=== PATIENT | male | born 1960 | race Two or more races ===

== ENCOUNTER 2022-11-04 07:49 | Inpatient (IN) | payer MEDICAID ==
[~2022-11-04] VITALS: Ht 170.2 cm; Wt 74.5 kg
[2022-11-04 09:05] LABS: Basophils # (auto) 0 10 ^3/uL (0-0.2); Basophils % (auto) 0.2 % (0.0-2.0); Eosinophils # (auto) 0.2 10 ^3/uL (0-0.8); Eosinophils % (auto) 1.8 % (0.0-7.0); Hematocrit 48.6 % (41.0-53.0); Hemoglobin 16.3 g/dL (13.5-17.5); Lymphocytes # (auto) 3.1 10 ^3/uL (0.4-5.4); Lymphocytes % (auto) 35.2 % (10.0-50.0); Mean Corpuscular Hgb Conc. 33.5 g/dL (32.0-36.0); Mean Corpuscular Volume 92.6 fL (80.0-100.0); Monocytes # (auto) 0.8 10 ^3/uL (0-1.3); Monocytes % (auto) 9.1 % (0.0-12.0); Neutrophils # (auto) 4.7 10 ^3/uL (1.6-8.6); Neutrophils % (auto) 53.7 % (37.0-80.0); Nucleated Red Blood Cells % 0.1 %; Red Blood Cells 5.25 10^6/uL (4.5-5.90); Red Cell Distribution Width 13.9 % (11.8-14.3); White Blood Cell 8.7 10^3/uL (4.4-10.8)
[2022-11-04 09:20] LABS: Albumin 3.5 g/dL (3.4-5.0); Calcium 8.8 mg/dL (8.5-10.1); Potassium 4.1 mmol/L (3.5-5.1)
[2022-11-04 09:23] LABS: BUN/Creatinine Ratio 10.3; Bilirubin, Total 1.2 mg/dL (0.2-1.0)
[2022-11-04] MEDS ORDERED: ENOXAPARIN SOD 80 MG/0.8ML SYRINGE SC ONE (11:30)
[2022-11-04] MEDS ORDERED: MORPHINE SULFATE INJ 2 MG/ml SYRG IV PRN (14:15)
[2022-11-04] MEDS ORDERED: DOCUSATE SOD 100 MG CAP PO PRN (14:15)
[2022-11-04] MEDS ORDERED: ACETAMINOPHEN 325 MG TAB PO PRN (14:15)
[2022-11-04] MEDS ORDERED: ONDANSETRON HCL 4 MG/2 ML VIAL IV PRN (14:15)
[2022-11-04] MEDS ORDERED: NITROGLYCERIN 0.4 MG SL TAB SL PRN (14:15)
[2022-11-04 16:15] LABS: INR 3.09 (0.9-1.15); Partial Thromboplastin Time 49.3 sec (24.6-33.4)
[2022-11-04] MEDS ORDERED: ROSU1TAB13 PO (19:16)
[2022-11-04] MEDS ORDERED: GAB100C PO (19:16)
[2022-11-05 00:33] VITALS: BP 97/63
[2022-11-05 05:40] LABS: Basophils # (auto) 0 10 ^3/uL (0-0.2); Basophils % (auto) 0.4 % (0.0-2.0); Eosinophils # (auto) 0.2 10 ^3/uL (0-0.8); Eosinophils % (auto) 2.3 % (0.0-7.0); Hematocrit 45.3 % (41.0-53.0); Hemoglobin 15.1 g/dL (13.5-17.5); Lymphocytes % (auto) 38.2 % (10.0-50.0); Mean Corpuscular Hemoglobin 31.1 pg (28.0-32.0); Mean Corpuscular Hgb Conc. 33.4 g/dL (32.0-36.0); Mean Corpuscular Volume 93.2 fL (80.0-100.0); Monocytes # (auto) 0.5 10 ^3/uL (0-1.3); Neutrophils % (auto) 52.1 % (37.0-80.0); Nucleated Red Blood Cells % 0.1 %; Red Blood Cells 4.86 10^6/uL (4.5-5.90); White Blood Cell 7.7 10^3/uL (4.4-10.8)
[2022-11-05 05:45] LABS: INR 3.17 (0.9-1.15); Partial Thromboplastin Time 42.1 sec (24.6-33.4)
[2022-11-05 05:53] LABS: Albumin 3.2 g/dL (3.4-5.0); BUN/Creatinine Ratio 14.4; Calcium 8.4 mg/dL (8.5-10.1); Potassium 3.8 mmol/L (3.5-5.1)
[2022-11-05 05:56] LABS: Bilirubin, Total 0.9 mg/dL (0.2-1.0); Total Protein 6.9 g/dL (6.4-8.2)
[2022-11-05] MEDS: PANTOPRAZOLE 40 MG/10 ML VIAL INJ IV SCH ×2 (11:57→11:58)
[2022-11-05] MEDS ORDERED: OMNIPAQUE ORAL SOLN 500ml 12mg/ml PO ONE (14:04)
[2022-11-05] MEDS ORDERED: IOHEXOL 300 MG/ML 100ML BOTTLE IJ ONE (15:09)
[2022-11-05 22:00] VITALS: BP 97/63
[2022-11-05] MEDS ORDERED: ENOXAPARIN SOD 80 MG/0.8ML SYRINGE SC SCH (22:00)
[2022-11-05] MEDS: ATORVASTATIN 20 MG TAB PO SCH (22:59)
[2022-11-06] VITALS (8 sets, daily range): BP systolic 97–124; BP diastolic 63–76
[2022-11-06] MEDS ORDERED: WARF5TAB71 PO (01:25)
[2022-11-06] MEDS: MORPHINE SULFATE INJ 2 MG/ml SYRG IV PRN ×2 (04:29→13:14)
[2022-11-06 05:51] LABS: Basophils # (auto) 0.1 10 ^3/uL (0-0.2); Basophils % (auto) 0.7 % (0.0-2.0); Eosinophils # (auto) 0.3 10 ^3/uL (0-0.8); Eosinophils % (auto) 3.7 % (0.0-7.0); Hematocrit 44.1 % (41.0-53.0); Hemoglobin 14.9 g/dL (13.5-17.5); Lymphocytes # (auto) 3.9 10 ^3/uL (0.4-5.4); Mean Corpuscular Hemoglobin 31.6 pg (28.0-32.0); Mean Corpuscular Hgb Conc. 33.9 g/dL (32.0-36.0); Mean Corpuscular Volume 93.3 fL (80.0-100.0); Monocytes # (auto) 1.1 10 ^3/uL (0-1.3); Monocytes % (auto) 11.9 % (0.0-12.0); Neutrophils # (auto) 3.9 10 ^3/uL (1.6-8.6); Neutrophils % (auto) 41.7 % (37.0-80.0); Nucleated Red Blood Cells % 0.2 %; Red Blood Cells 4.73 10^6/uL (4.5-5.90); Red Cell Distribution Width 14.3 % (11.8-14.3); White Blood Cell 9.3 10^3/uL (4.4-10.8)
[2022-11-06 06:03] LABS: Albumin 3.2 g/dL (3.4-5.0); Calcium 8.5 mg/dL (8.5-10.1)
[2022-11-06 06:09] LABS: BUN/Creatinine Ratio 15.2; Total Protein 6.7 g/dL (6.4-8.2)
[2022-11-06 07:33] LABS: INR 2.28 (0.9-1.15); Partial Thromboplastin Time 38.4 sec (24.6-33.4)
[2022-11-06] MEDS: MULTIPLE VITAMIN TAB PO SCH (11:00)
[2022-11-06] MEDS: PANTOPRAZOLE 40 MG/10 ML VIAL INJ IV SCH (11:00)
[2022-11-06] MEDS: THIAMINE HCL 100 MG TAB PO SCH (11:00)
[2022-11-06] MEDS ORDERED: WARFARIN SODIUM 5 MG TAB PO ONE (17:00)
[2022-11-06] MEDS: ATORVASTATIN 20 MG TAB PO SCH (22:10)
[2022-11-06] MEDS: HYDROcodone-ACET 5/325MG TAB PO PRN (22:11)
[2022-11-06 22:36] LABS: Urine Bacteria NONE SEEN /hpf (None Seen); Urine Blood Negative /uL (Negative); Urine Specific Gravity 1.023 (1.001-1.035); Urine WBC 1 /hpf (0 - 3)
[2022-11-06 22:50] LABS: Alcohol, Urine < 3.0 mg/dL (0-10); Amphetamine Screen, Urine NEGATIVE (NEGATIVE); Barbiturate Scree,Urine NEGATIVE (NEGATIVE); Benzodiazephine Screen, Urine NEGATIVE (NEGATIVE); Cannabinoid Screen, Urine NEGATIVE (NEGATIVE); Cocaine Screen, Urine NEGATIVE (NEGATIVE); Opiate Scree,Urine NEGATIVE (NEGATIVE); Phencyclidine Screen, Urine NEGATIVE (NEGATIVE)
[2022-11-07] MEDS: HYDROcodone-ACET 5/325MG TAB PO PRN (04:44)
[2022-11-07 05:00] VITALS: BP 101/70
[2022-11-07 05:54] LABS: INR 1.7 (0.9-1.15); Partial Thromboplastin Time 32.2 sec (24.6-33.4)
[2022-11-07 08:00] VITALS: BP 113/70
[2022-11-07 09:00] VITALS: BP 113/70
[2022-11-07] MEDS: MULTIPLE VITAMIN TAB PO SCH (09:27)
[2022-11-07] MEDS: PANTOPRAZOLE 40 MG/10 ML VIAL INJ IV SCH (09:27)
[2022-11-07] MEDS: THIAMINE HCL 100 MG TAB PO SCH (09:28)
[2022-11-07 13:00] VITALS: BP 102/61
[2022-11-07] MEDS ORDERED: WARFARIN SODIUM 2 MG TAB PO ONE (17:00)
== END 2022-11-07 18:19 | disposition home or self-care (01) | DRG 197 ==
LOC: ER 08:13 → TELE 15:02 → OVERFLOW 15:09 → CENTRAL 11-05 21:23
PROVIDERS: ADMIT Nurse Practitioner Family; ATTEND Nurse Practitioner Acute Care
DX: I82.411 Acute embolism and thrombosis of right femoral vein (principal); D68.69 Other thrombophilia; E78.5 Hyperlipidemia, unspecified; I73.9 Peripheral vascular disease, unspecified; I82.501 Chronic embolism and thrombosis of unspecified deep veins of right lower extremity; H54.8 Legal blindness, as defined in USA; I10 Essential (primary) hypertension; J44.9 Chronic obstructive pulmonary disease, unspecified; Z20.822 Contact with and (suspected) exposure to COVID-19; Z79.01 Long term (current) use of anticoagulants; Z86.73 Personal history of transient ischemic attack (TIA), and cerebral infarction without residual deficits; Z72.0 Tobacco use
CPT/HCPCS: 36415; 74177; 80053; 80307; 81001; 84484; 85025; 85610; 85730; 87426; 93926; 93970; 96372; C9113; G0378

== ENCOUNTER 2025-10-12 09:23 | Inpatient (IN) | payer MEDICARE, MEDICAID ==
[~2025-10-12] VITALS: Ht 170.2 cm; Wt 83.0 kg
[~2025-10-12 09:23] MED LIST: GAB100C PO; ROSU10TA64 PO; WARF-66 PO
--- NOTE | 2025-10-12 10:19 | ED.PDOC ---
HPI Comments This is a 64 year old male [place] presenting to the ED with chief complaint of chest pain. Patient reports that he has been experiencing right sided chest pain for the past 4-5 days with associated SOB and pain with inspiration. Patient relays that he has used an inhaler he had at home with no relief in his symptoms noted. EMS states patient needed to be placed on 6L of O2 at this time. Patient denies any N/V/D, dizziness, headache, abdominal pain, cough, hemoptysis, or fev er. Chief Complaint: Shortness of Breath Time Seen by MD: 10:16 Reviewed Notes: Nurses Notes, Journeyman Plumber Notes, Medications, Allergies Allergies: Coded Allergies: NO KNOWN ALLERGIES (Unverified , 11/04/22) Home Meds Reported Medications Warfarin Sodium (Warfarin Sodium) 5 Mg Tab, 5 MG PO DAILY, TAB 11/06/22 Rosuvastatin Calcium (Rosuvastatin Calcium) 10 Mg Tab, 10 MG PO DAILY 11/04/22 Gabapentin (Gabapentin) 100 Mg Cap, 100 MG PO DAILY 11/04/22 Information Source: Patient, Emergency Med Personnel Mode of Arrival: EMS Severity: Moderate Timing: Hours Duration: Since onset Prehospital treatment: None Location: Chest (R) Radiation: No Radiation Quality: Sharp Onset: At Rest Cardiac Risk Factors: None PE Risk Factors: None History of: Similar pain in past Associated Signs and Symptoms: SOB Past Medical History PAST MEDICAL HISTORY: High Lipids, HTN, PE Past Medical History (Other): DVT Surgical History: Denies all surgeries Family History Family History: Reviewed,noncontributory to illness Social History Smoker: Non-Smoker Alcohol: Denies ETOH Use Drugs: Denies Drug Use Lives In: Home Constitutional: denies: chills, diaphoresis, fatigue, fever, malaise, sweats, weakness, others EENTM: denies: blurred vision, double vision, ear bleeding, ear discharge, ear drainage, ear pain, ear ringing, eye pain, eye redness, hearing loss, mouth pain, mouth swelling, nasal discharge, nose bleeding, nose congestion, nose pain, photophobia, tearing, throat pain, throat swelling, voice changes, others Respiratory: reports: shortness of breath; denies: cough, hemoptysis, orthopnea, SOB at rest, SOB with excertion, stridor, wheezing, others Cardiovascular: reports: chest pain; denies: dizzy spells, diaphoresis, Dyspnea on exertion, edema, irregular heart beat, left arm pain, lightheadedness, palpitations, PND, syncope, others Gastrointestinal: denies: abdomen distended, abdominal pain, blood streaked bowels, constipated, diarrhea, dysphagia, difficulty swallowing, hematemesis, melena, nausea, poor appetite, poor fluid intake, rectal bleeding, rectal pain, vomiting, others Genitourinary: denies: burning, dysuria, flank pain, frequency, hematuria, incontinence, penile discharge, penile sore, pain, testicle pain, testicle swelling, urgency, others Neurological: denies: dizziness, fainting, headache, left sided numbness, left sided weakness, numbness, paresthesia, pre-existing deficit, right sided numbness, right sided weakness, seizure, speech problems, tingling, tremors, weakness, others Musculoskeletal: denies: back pain, gout, joint pain, joint swelling, muscle pain, muscle stiffness, neck pain, others Integumetry: denies: bruises, change in color, change in hair/nails, dryness, laceration, lesions, lumps, rash, wounds, others Allergic/Immunocompromised: denies: Difficulty Healing, Frequent Infections, Hives, Itching, others Hematologic/Lymphatic: denies: anemia, blood clots, easy bleeding, easy bruising, swollen glands, others Endocrine: denies: excessive hunger, excessive sweating, excessive thirst, excessive urination, flushing, intolerance to cold, intolerance to heat, unexpl ained weight gain, unexplained weight loss, others Psychiatric: denies: anxiety, bipolar disorder, depression, hopeless, panic disorder, schizophrenia, sleepless, suicidal, others All Other Systems: Reviewed and Negative Physical Exam General Appearance: Moderate Distress, Normal HEENT: Normal ENT Inspection, PERRL/EOMI, Pharynx Normal, TMs Normal, Other (Blind right eye) Neck: Full Range of Motion, Non-Tender, Normal, Normal Inspection Respiratory: Chest Non-Tender, Lungs Clear, No Accessory Muscle Use, No Respiratory Distress, Normal Breath Sounds, Other (Pain upon inspiration mostly lateral and) Cardiovascular: No Edema, No JVD, No Murmur, No Gallop, Normal Peripheral Pulses, Regular Rate/Rhythm Breast Exam: Deferred Gastrointestinal: No Organomegaly, Non Tender, No Pulsatile Mass, Normal Bowel Sounds, Soft Genitalia: Deferred Pelvic: Deferred Rectal: Deferred Extremities: No calf tenderness, Normal capillary refill, Normal inspection, Normal range of motion, Non-tender, No pedal edema Musculoskeletal : Apperance: Normal Neurologic: Alert, italian lecturer II-XII nml as Tested, No Motor Deficits, Normal Affect, Normal Mood, No Sensory Deficits Cerebellar Function: Normal Reflexes: Normal Skin: Dry, Normal Color, Warm Peripheral Pulses: 1+ carotid (R), 1+ carotid (L) Lymphatic: No Adenopathy EKG EKG : Pulse Rate (adult): 91 [place]: Normal Cardiac Rhythm: NSR Was a procedure done? Was a procedure done?: No CP Differential Dx Differential Diagnosis: Angina, Anxiety / Panic Attack, Electrolyte Disorder, CA, Pulmonary Embolus Differential Diagnosis: CHF Differential Diagnosis: Angina, Chest Wall Pain, Costochondritis, Esophageal reflux/spasm, Myocardial Infarction, Pneumonia, Pulmonary Embolus X-Ray, Labs, Meds, VS Vital Signs Date Time Temp Pulse Resp B/P (MAP) Pulse Ox O2 Delivery O2 Flow Rate FiO2 10/12/25 14:35 99.1 85 18 127/72 (90) 92 99.1 10/12/25 13:00 90 25 144/88 (106) 94 10/12/25 12:00 88 25 93 Nasal Cannula* 6 44 10/12/25 11:00 98.8 82 24 129/83 (98) 94 98.8 10/12/25 09:51 98.0 101 22 146/92 94 98.0 10/12/25 09:26 91 Lab Test 10/12/25 13:37 10/12/25 11:30 Range/Units Lactic Acid Level 1.5 0.4-2.0 mmol/L White Blood Count 12.6 H 4.4-10.8 10^3/uL Red Blood Count 4.90 4.5-5.90 10^6/uL Hemoglobin 15.6 13.5-17.5 g/dL Hematocrit 45.8 41.0-53.0 % Mean Corpuscular Volume 93.3 80.0-100.0 fL Mean Corpuscular Hemoglobin 31.8 28.0-32.0 pg Mean Corpuscular Hemoglobin Concent 34.1 32.0-36.0 g/dL Red Cell Distribution Width 13.5 11.8-14.3 % Platelet Count 194 140-450 10^3/uL Mean Platelet Volume 7.6 6.9-10.8 fL Neutrophils (%) (Auto) 67.1 37.0-80.0 % Lymphocytes (%) (Auto) 20.6 10.0-50.0 % Monocytes (%) (Auto) 11.3 0.0-12.0 % Eosinophils (%) (Auto) 0.2 0.0-7.0 % Basophils (%) (Auto) 0.8 0.0-2.0 % Neutrophils # (Auto) 8.5 1.6-8.6 10 ^3/uL Lymphocytes # (Auto) 2.6 0.4-5.4 10 ^3/uL Monocytes # (Auto) 1.4 H 0-1.3 10 ^3/uL Eosinophils # (Auto) 0 0-0.8 10 ^3/uL Basophils # (Auto) 0.1 0-0.2 10 ^3/uL Nucleated Red Blood Cells 0.0 % Prothrombin Time 11.1 9.3-11.8 sec Prothrombin Time INR 1.05 0.9-1.15 Activated Partial Thromboplast Time 26.2 24.5-34.5 SEC D-Dimer, Quantitative 6.12 H 0.0-0.49 mg/L FEU Sodium Level 138 136-145 mmol/L Potassium Level 4.4 3.5-5.1 mmol/L Chloride Level 102 98-107 mmol/L Carbon Dioxide Level 27 20-31 mmol/L Anion Gap 9 5-15 Blood Urea Nitrogen 10 9-23 mg/dL Creatinine 0.98 0.700-1.30 mg/dL Glomerular Filtration Rate Calc 86 >90 mL/min BUN/Creatinine Ratio 10.2 10.0-20.0 Serum Glucose 96 74-106 mg/dL Calcium Level 8.9 8.7-10.4 mg/dL Magnesium Level 2.4 1.6-2.6 mg/dL Total Bilirubin 1.3 H 0.2-1.0 mg/dL Aspartate Amino Transferase (AST) 18 13-40 U/L Alanine Aminotransferase (ALT) 18 7-40 U/L Alkaline Phosphatase 77 46-116 U/L Troponin I High Sensitivity < 3 L </=54 ng/L Total Protein 7.7 5.7-8.2 g/dL Albumin 4.2 3.2-4.8 g/dL Current Medications Medications (Trade) Dose Ordered Sig/Chandler Route Start Time Stop Time Status Last Admin Sodium Chloride 1,000 ml @ 150 mls/hr Q6H40M ONCE IV 10/12/25 11:30 10/12/25 18:09 10/12/25 12:13 [place] [id number] Ph: [phone] DIAGNOSTIC IMAGING Diagnostic Imaging Report : [id number] Signed PATIENT: ISAURO JACK ACCT: [id number] UNIT: [id number] : 1960 LOC: ER ROOM / BED: / AGE / SEX: 64 / M ADM STATUS: REG ER SERVICE [id number] ORDERING PHYSICIAN: LAUREN JOSHI MD PROCEDURE(s): CTACH - CT ANGIO CHEST CONTRAST REASON: Pulmonary embolism ORDER NUMBER(s): [id number], ACCESSION NUMBER(s): [id number] CLINICAL INFORMATION: Pulmonary embolism. Indication for same-day chest radiographs was pleuritic chest pain. TECHNIQUE: Axial CTA images of the chest were obtained after the uneventful administration of 100 mL of Omnipaque 350 IV contrast. Coronal and sagittal reformatted images and MIP images were obtained, reviewed, and stored. One or more of the following dose reduction techniques were used: Automated exposure control. Adjustment of mA and/or kV according to patient size. CTDIvol = 19.94 mGy DLP = 590.06 mGy-cm COMPARISON: XY CHEST TWO VIEWS ROUTINE on DOS: 10/12/25, XR CHEST 1 VIEW on DOS: 09/18/23 FINDINGS: Pulmonary arteries: There are bilateral pulmonary emboli, including in the distal aspects of the right and left main pulmonary arteries and extending into the proximal lobar and segmental branches bilaterally. Aorta: No aneurysm or dissection. Cardiac: Heart size is within normal limits. There is straightening of the interventricular septum with the right ventricle equal in size compared to the left ventricle, may suggest a degree of right heart strain in the appropriate clinical setting. Moderate coronary artery calcification. Small pericardial effusion. Mediastinum/riky: No mass or adenopathy. Lungs: Small right pleural effusion there are areas of atelectasis and consolidation in the lower lobes bilaterally, left greater than right, right middle lobe, and lingula. Chest wall: No mass or other abnormality. Upper abdomen: Moderate atrophy of the pancreas. Bones: No acute fracture or suspicious intraosseous lesions. IMPRESSION: 1. Acute bilateral pulmonary emboli, including in the distal aspects of the right and left main pulmonary arteries and extending into lobar and segmental branches. 2. Findings described above consistent with a degree of right heart strain in the appropriate clinical setting. 3. Atelectasis and consolidations are seen in the lower lobes bilaterally, right greater than left, and in the right middle lobe and lingula. 4. Additional findings as described above. Critical findings Critical Result: Acute pulmonary emboli. Possible right heart strain. Findings discussed with LAUREN SHAW at 10/12/2025 03:40 PM JUNIOR SALES REPRESENTATIVE, and acknowledged receipt and understanding of the findings. .. ATED BY: JOSE J PENALOZA DO DICTATED DATE/TIME: 10/12/251343 SIGNED BY: JOSE J PENALOZA DO SIGNED DATE/TIME: 10/12/251343 CC: X-Ray, Labs, Meds, VS Comment Course in emergency department patient came in complaining of shortness of breath and chest pain Chest x-ray shows pulmonary vascular congestion cardiomegaly and opacities EKG shows normal sinus rhythm at 91 CBC [id number] with 67% neutrophils normal H&H INR 1.05 D-dimer six 0.12 CMP negative Magnesium 2.4 Troponin less than three Patient will be admitted to ICU for further care Images Reviewed?: Images reviewed and evaluated by me Time of 1ST Reevaluation: 11:15 Reevaluation 1ST: Unchanged Time of 2ND Reevaluation: 16:08 Reevaluation 2ND: Unchanged Patient Education/Counseling: Diagnosis, Treatment, Prognosis Family Education/Counseling: Diagnosis, Treatment, Need For Follow Up, No Family Present SEPSIS Sepsis Screen Date sepsis recognized/suspect: Oct 12, 2025 Time Sepsis recognized/suspect: 934 Recent Procedure: No On Antibiotic Therapy: No Respiratory Rate >20: No Heart Rate >90: No Temp<36 C (96.8 F) or >38.3 C: No SBP <90 or MAP <65 mmHG: No New Acute Mental Status Change: No Is the patient on CPAP, BIPAP,: No Physician Orders Chest Two Views Routine (10/12/25 11:22) Heplock Iv (10/12/25 11:22) Plastic Production Machine Setter (10/12/25 11:22) Blood Pressure (10/12/25 11:22) Electrocardigram (10/12/25 11:22) Sodium Chloride 0.9% (10/12/25 11:30) Ct Angio Chest Contrast (10/12/25 12:35) Blood Culture (10/12/25 13:24) Platelet Monitoring (10/12/25 14:29) Vte Protocol Initiated (10/12/25 14:29) Heparin Per Standardized Proce (10/12/25 14:29) Discontinue All Im Injections (10/12/25 14:29) Heparin Drip/D5w 100units/Ml (10/12/25 14:30) Vital Signs Date Time Temp Pulse Resp B/P (MAP) Pulse Ox O2 Delivery O2 Flow Rate FiO2 10/12/25 14:35 99.1 85 18 127/72 (90) 92 99.1 10/12/25 13:00 90 25 144/88 (106) 94 10/12/25 12:00 88 25 93 Nasal Cannula* 6 44 10/12/25 11:00 98.8 82 24 129/83 (98) 94 98.8 10/12/25 09:51 98.0 101 22 146/92 94 98.0 10/12/25 09:26 91 Laboratory Tests Test 10/12/25 11:30 10/12/25 13:37 White Blood Count 12.6 10^3/uL (4.4-10.8) H Lactic Acid Level 1.5 mmol/L (0.4-2.0) Medications Medications Dose Ordered Sig/Chandler Route Start Time Stop Time Status Last Admin Dose Admin Sodium Chloride 1,000 ml @ 150 mls/hr Q6H40M ONCE IV 10/12/25 11:30 10/12/25 18:09 10/12/25 12:13 Departure 1 Departure Time of Disposition: 16:10 Impression: Primary Impression: Shortness of breath Additional Impressions: Pleuritic chest pain Bilateral pulmonary embolism Disposition: 09 ADMITTED INPATIENT Admit to: ICU Condition: Critical Critical Care Note Critical Care Time?: Yes (30 min-critical care time only) Stability Stability form required: Yes Heart Score Heart Score: Heart Score Response (Comments) Value History Moderate Suspicious 1 EKG Normal 0 Age >65 2 Risk Factors >3 or Hx ASHD 2 Troponin Normal limit 0 Total 5 I personally scribed for LAUREN JOSHI MD ([email or web address]) on 10/12/25 at 10:19. Electronically submitted by Rogerio Whitfield ([email or web address]). I personally scribed for LAUREN JOSHI MD ([email or web address]) on 10/12/25 at 14:20. Electronically submitted by Rogerio Whitfield ([email or web address]). LAUREN JOSHI MD Oct 12, 2025 10:19
[2025-10-12 11:47] LABS: Hematocrit 45.8 % (41.0-53.0); Hemoglobin 15.6 g/dL (13.5-17.5); Mean Corpuscular Hemoglobin 31.8 pg (28.0-32.0); Mean Corpuscular Volume 93.3 fL (80.0-100.0); Nucleated Red Blood Cells % 0.0 %
[2025-10-12 12:00] VITALS: PULSE 88; RESP 25; O2SAT 93
[2025-10-12 12:09] LABS: INR 1.05 (0.9-1.15); Partial Thromboplastin Time 26.2 SEC (24.5-34.5); Prothrombin Time 11.1 sec (9.3-11.8)
--- NOTE | 2025-10-12 12:09 | DVH ---
CHEST RADIOGRAPH Indication: Pleuritic chest pain Technique: XY CHEST TWO VIEWS ROUTINE COMPARISON: None FINDINGS: Low lung volumes. The cardiac silhouette is enlarged. The lungs demonstrate bilateral patchy airspace opacities. The pulmonary vasculature is prominent. Small bilateral pleural effusions. Aortic atherosclerotic disease. There is no pneumothorax. IMPRESSION: As above
[2025-10-12 12:11] LABS: Alanine Aminotransferase 18 U/L (7-40); Albumin 4.2 g/dL (3.2-4.8); Alkaline Phosphatase 77 U/L (46-116); Anion Gap 9 (5-15); BUN/Creatinine Ratio 10.2 (10.0-20.0); Blood Urea Nitrogen 10 mg/dL (9-23); Calcium 8.9 mg/dL (8.7-10.4); Carbon Dioxide 27 mmol/L (20-31); Chloride 102 mmol/L (98-107); Glucose 96 mg/dL (74-106); Magnesium 2.4 mg/dL (1.6-2.6); Potassium 4.4 mmol/L (3.5-5.1); Sodium 138 mmol/L (136-145); Total Protein 7.7 g/dL (5.7-8.2)
[2025-10-12 12:12] LABS: Bilirubin, Total 1.3 mg/dL (0.2-1.0)
[2025-10-12] MEDS: SODIUM CHLORIDE 0.9% 1,000 ML IV ONE (12:13)
--- NOTE | 2025-10-12 13:47 | DVH ---
CLINICAL INFORMATION: Pulmonary embolism. Indication for same-day chest radiographs was pleuritic chest pain. TECHNIQUE: Axial CTA images of the chest were obtained after the uneventful administration of 100 mL of Omnipaque 350 IV contrast. Coronal and sagittal reformatted images and MIP images were obtained, reviewed, and stored. One or more of the following dose reduction techniques were used: Automated exposure control. Adjustment of mA and/or kV according to patient size. CTDIvol = 19.94 mGy DLP = 590.06 mGy-cm COMPARISON: XY CHEST TWO VIEWS ROUTINE on DOS: 10/12/25, XR CHEST 1 VIEW on DOS: 09/18/23 FINDINGS: Pulmonary arteries: There are bilateral pulmonary emboli, including in the distal aspects of the right and left main pulmonary arteries and extending into the proximal lobar and segmental branches bilaterally. Aorta: No aneurysm or dissection. Cardiac: Heart size is within normal limits. There is straightening of the interventricular septum with the right ventricle equal in size compared to the left ventricle, may suggest a degree of right heart strain in the appropriate clinical setting. Moderate coronary artery calcification. Small pericardial effusion. Mediastinum/riky: No mass or adenopathy. Lungs: Small right pleural effusion there are areas of atelectasis and consolidation in the lower lobes bilaterally, left greater than right, right middle lobe, and lingula. Chest wall: No mass or other abnormality. Upper abdomen: Moderate atrophy of the pancreas. Bones: No acute fracture or suspicious intraosseous lesions. IMPRESSION: 1. Acute bilateral pulmonary emboli, including in the distal aspects of the right and left main pulmonary arteries and extending into lobar and segmental branches. 2. Findings described above consistent with a degree of right heart strain in the appropriate clinical setting. 3. Atelectasis and consolidations are seen in the lower lobes bilaterally, right greater than left, and in the right middle lobe and lingula. 4. Additional findings as described above. Critical findings Critical Result: Acute pulmonary emboli. Possible right heart strain. Findings discussed with LAUREN SHAW at 10/12/2025 03:40 PM DIRECTOR OF REIMBURSEMENT, and acknowledged receipt and understanding of the findings. ..
[2025-10-12] MEDS ORDERED: HEPARIN DRIP/D5W 100UNITS/ML 250 ML IV SCH (14:30)
[2025-10-12] MEDS: HEPARIN SODIUM (PORCINE) 5000 UNITS/ML 1ML VIAL IV ONE (16:17)
--- NOTE | 2025-10-12 16:22 | CONS ---
Pharmacy Clinical Information: Heparin Protocol for PE aPTT 26.2 on 10/12/25 at 11:30 Then Heparin drip at 1500 units/ml or 15 ml/hr at 1630 on 10/12/25 next aPTT reading at 22:30 on 10/12/25 Confirmed and re-back with EDISON Santana Per RX protocol TEMI LARSON PHARMACIST Oct 12, 2025 16:22
[2025-10-12] MEDS: HEPARIN DRIP/D5W 100UNITS/ML 250 ML IV SCH ×2 (17:00→21:00)
[2025-10-12] MEDS ORDERED: MORPHINE SULFATE INJ 2 MG/ml SYRG IV PRN (18:15)
[2025-10-12] MEDS: LACTATED RINGER'S 1,000 ML IV ONE (18:15)
[2025-10-12] MEDS ORDERED: ACETAMINOPHEN 325 MG TAB PO PRN (18:15)
[2025-10-12] MEDS ORDERED: ONDANSETRON HCL 4 MG/2 ML VIAL IV PRN (18:15)
[2025-10-12] MEDS: AZITHROMYCIN 500MG/250ML 250 ML IV SCH (18:15)
[2025-10-12] MEDS ORDERED: NITROGLYCERIN 0.4 MG SL TAB SL PRN (18:15)
[2025-10-12] MEDS: PANTOPRAZOLE 40 MG/10 ML VIAL INJ IV SCH (18:15)
[2025-10-12] MEDS ORDERED: DOCUSATE SOD 100 MG CAP PO PRN (18:15)
[2025-10-12] MEDS ORDERED: TEMAZEPAM 15 MG CAP PO PRN (18:15)
--- NOTE | 2025-10-12 18:56 | DVH ---
Clinical History: rule out DVT Comparison: CV VENOUS DOPPLER LOW EXT RT on DOS: 09/17/24, RLEAD on DOS: 11/04/22, BI LOWER DVT on DOS: 11/04/22 Technique: Duplex Doppler evaluation of the deep venous system of the right lower extremity from the common femoral vein to the popliteal vein including color Doppler and spectral/pulsed waveform analysis was performed. Findings: The common femoral vein demonstrates appropriate compressibility and waveform variability. There is compressibility/patency of the great saphenous vein at the proximal thigh. The femoral vein demonstrates appropriate compressibility and waveform variability. The deep femoral vein demonstrates appropriate compressibility and waveform variability. The popliteal vein demonstrates appropriate compressibility and waveform variability. There is normal compressibility at the tibioperoneal trunk. Impression: 1. No RIGHT deep venous thrombosis. 2. If clinical concern/symptoms persist or worsen, short-interval follow-up study is suggested.
[2025-10-12 19:32] VITALS: PULSE 94; RESP 19; O2SAT 94
[2025-10-12 20:08] LABS: INR 1.13 (0.9-1.15); Prothrombin Time 11.8 sec (9.3-11.8)
[2025-10-12 20:44] LABS: Partial Thromboplastin Time 82.1 SEC (24.5-34.5)
--- NOTE | 2025-10-12 22:51 | DVHHPRES ---
History of Present Illness Resident Creating Document: TORRI CARMEN RESIDENT History of Present Illness Mr. Mckay, a 64 year old male with PmHx of Dyslipidemia, recurrent DVT, pulmonary embolism, hypertension, copd and legal blindness presenting to the ED with chief complaint of sudden onset sharp, right sided chest pain at rest. aggravated by deep breathing, associated with gradually progressive shortness of breath even at rest for past 4-5 days. Patient reached out to Dr. Arevalo's office where he was found to be in acute hypoxic respiratory failure and was BIBA to [facility] ER for further evaluation. Patient relays that he has used an inhaler he had at home with no relief in his symptoms noted. Patient denies any N/V/D, dizziness, headache, sick contact, immobilization abdominal pain, cough, hemoptysis, or fever. Prior hospitalization was due to thromboembolism as well and the patient was previously on warfarin 5 mg daily. Patient is off of warfarin and all oral medications for past few months. Lives by himself in his house, ADL with a cane, Daughter Millie who lives at [place], [place] occasionally comes and helps with doctors appointments and care. 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 Social History: Brief prior history fo smoking, denies alcohol, recreational drugs, lives by himself at home at [place], [place]. Review of Systems Constitutional: Yes: Chills, Weakness, Malaise; No: Fever, Sweats, Other Eyes: Other (baseline b/l blindness. ); No: Pain, Vision change, Conjunctivae inflammation, Eyelid inflammation, Redness ENT: No: Ear pain, Ear discharge, Nose pain, Nose discharge, Nose congestion, Mouth pain, Mouth swelling, Throat pain, Throat swelling, Other Respiratory: Cough, Shortness of breath, SOB with excertion, Pleuritic Pain; No: Dry, Wheezing, Hemoptysis, Sputum, Wheezing, Other Cardiovascular: Chest Pain; No: Palpitations, Orthopnea, Paroxysmal Noc. Dyspnea, Edema, Lt Headedness, Other Gastrointestinal: No: Nausea, Vomiting, Abdominal Pain, Diarrhea, Constipation, Melena, Hematochezia, Other Genitourinary: No Dysuria, No Frequency, No Incontinence, No Hematuria, No Retention, No Other Musculoskeletal: No: other, neck pain, shoulder pain, arm pain, back pain, hand pain, leg pain, foot pain Skin: No: Rash, Lesions, Jaundice, Bruising, Other Neurological: No: Weakness, Numbness, Incoordination, Change in speech, Conf usion, Seizures, Other Allergies: Coded Allergies: NO KNOWN ALLERGIES (Unverified , 11/04/22) Medications Current Medications Medications Dose Ordered Sig/Chandler Route Start Time Stop Time Status Last Admin Dose Admin Heparin Sodium/ Dextrose 250 ml @ 14.85 mls/ hr [id number] IV 10/12/25 14:30 UNV Temazepam 15 mg QHSP PRN PO 10/12/25 18:15 Ondansetron HCl 4 mg Q4HP PRN IV 10/12/25 18:15 Docusate Sodium 100 mg BIDPRN PRN PO 10/12/25 18:15 Acetaminophen 650 mg Q6HP PRN PO 10/12/25 18:15 Morphine Sulfate 2 mg Q4HPRN PRN IV 10/12/25 18:15 Nitroglycerin 0.4 mg Q5MINP PRN SL 10/12/25 18:15 Morphine Sulfate 2 mg Q30M PRN IV 10/12/25 18:15 Pantoprazole Sodium 40 mg DAILY IV 10/12/25 18:15 10/29/25 11:59 10/12/25 18:15 40 MG Ceftriaxone Sodium 50 ml @ 100 mls/hr DAILY IV 10/12/25 18:15 10/18/25 23:59 10/12/25 18:15 100 MLS/HR Azithromycin 250 ml @ 125 mls/hr DAILY IV 10/12/25 18:15 10/18/25 23:59 Heparin Sodium/ Dextrose 250 ml @ 13 mls/hr [id number] IV 10/12/25 21:15 10/12/25 21:00 13 MLS/HR Exam Vital Signs Vital Signs Date Time Temp Pulse Resp B/P (MAP) Pulse Ox O2 Delivery O2 Flow Rate FiO2 10/12/25 21:00 80 24 142/80 (100) 98 10/12/25 19:32 Nasal Cannula* 2 28 10/12/25 19:32 98.4 98.4 General Appearance: Alert, Oriented X3, mild distress HEENT: Atraumatic, PERRLA, EOMI, Other (dry mucosa, right eye enucleated in 1970s, left eye clinically blind. ) Respiratory: Clear to auscultation, Normal air movement, Other (basal rales and wheezing. ) Cardiovascular: Regular rate, Normal S1, Normal S2, No murmurs, Gallops Abdominal: Normal bowel sounds, Soft, No tenderness, No hepatospenomegaly, No masses Extremities: No clubbing, No cyanosis, No edema, Normal pulses, No tenderness/swelling, Other Skin: No rashes, No breakdown, No significant lesion Neuro: Normal gait, Normal speech, Strength at 5/5 X4 ext, Normal tone, Sensation intact, Other Labs/Xrays Labs Test 10/12/25 22:19 10/12/25 22:18 10/12/25 19:09 10/12/25 13:37 Range/Units Prothrombin Time 11.8 9.3-11.8 sec Prothrombin Time INR 1.13 0.9-1.15 Activated Partial Thromboplast Time 82.1 *H 24.5-34.5 SEC Troponin I High Sensitivity < 3 L </=54 ng/L Lactic Acid Level 1.5 0.4-2.0 mmol/L Test 10/12/25 11:30 Range/Units White Blood Count 12.6 H 4.4-10.8 10^3/uL Red Blood Count 4.90 4.5-5.90 10^6/uL Hemoglobin 15.6 13.5-17.5 g/dL Hematocrit 45.8 41.0-53.0 % Mean Corpuscular Volume 93.3 80.0-100.0 fL Mean Corpuscular Hemoglobin 31.8 28.0-32.0 pg Mean Corpuscular Hemoglobin Concent 34.1 32.0-36.0 g/dL Red Cell Distribution Width 13.5 11.8-14.3 % Platelet Count 194 140-450 10^3/uL Mean Platelet Volume 7.6 6.9-10.8 fL Neutrophils (%) (Auto) 67.1 37.0-80.0 % Lymphocytes (%) (Auto) 20.6 10.0-50.0 % Monocytes (%) (Auto) 11.3 0.0-12.0 % Eosinophils (%) (Auto) 0.2 0.0-7.0 % Basophils (%) (Auto) 0.8 0.0-2.0 % Neutrophils # (Auto) 8.5 1.6-8.6 10 ^3/uL Lymphocytes # (Auto) 2.6 0.4-5.4 10 ^3/uL Monocytes # (Auto) 1.4 H 0-1.3 10 ^3/uL Eosinophils # (Auto) 0 0-0.8 10 ^3/uL Basophils # (Auto) 0.1 0-0.2 10 ^3/uL Nucleated Red Blood Cells 0.0 % D-Dimer, Quantitative 6.12 H 0.0-0.49 mg/L FEU Sodium Level 138 136-145 mmol/L Potassium Level 4.4 3.5-5.1 mmol/L Chloride Level 102 98-107 mmol/L Carbon Dioxide Level 27 20-31 mmol/L Anion Gap 9 5-15 Blood Urea Nitrogen 10 9-23 mg/dL Creatinine 0.98 0.700-1.30 mg/dL Glomerular Filtration Rate Calc 86 >90 mL/min BUN/Creatinine Ratio 10.2 10.0-20.0 Serum Glucose 96 74-106 mg/dL Calcium Level 8.9 8.7-10.4 mg/dL Magnesium Level 2.4 1.6-2.6 mg/dL Total Bilirubin 1.3 H 0.2-1.0 mg/dL Aspartate Amino Transferase (AST) 18 13-40 U/L Alanine Aminotransferase (ALT) 18 7-40 U/L Alkaline Phosphatase 77 46-116 U/L B-Type Natriuretic Peptide 21.43 0-100 pg/mL Total Protein 7.7 5.7-8.2 g/dL Albumin 4.2 3.2-4.8 g/dL SEPSIS Sepsis Screen Date sepsis recognized/suspect: Oct 12, 2025 Time Sepsis recognized/suspect: 2028 Recent Procedure: No On Antibiotic Therapy: Yes Respiratory Rate >20: No Heart Rate >90: Yes Temp<36 C (96.8 F) or >38.3 C: No SBP <90 or MAP <65 mmHG: No New Acute Mental Status Change: No Is the patient on CPAP, BIPAP,: No Physician Orders Heparin Per Pharmacy Protocol (10/12/25 23:00) Admit (10/12/25 18:11) Allergies (10/12/25 18:11) Code Status (10/12/25 18:11) Oxygen Per Hour (10/12/25 18:11) Temazepam (Restoril) (10/12/25 18:15) Ondansetron Hcl (Zofran) (10/12/25 18:15) Docusate Sodium Capsule (Colace Capsule) (10/12/25 18:15) Fall Risk Precautions In Place QSHIFT (10/12/25 18:11) Complete Blood Count (10/13/25 04:00) Comprehensive Metabolic Panel (10/13/25 04:00) Npo (Nothing By Mouth) Diet (10/12/25 Dinner) Pt Request For Service (10/12/25 18:11) Echo 2d Mode Cardiac Dop (10/12/25 18:11) Condition: Critical (10/12/25 18:11) Acetaminophen Tablet (Tylenol Tablet) (10/12/25 18:15) Bedrest With Bathroom Privileg (10/12/25 18:11) Bedside Commode (10/12/25 18:11) Maintain Bed Rest (10/12/25 18:11) Nitroglycerin Sublingual (Ntrostat Subli (10/12/25 18:15) Morphine Sulfate Injection (10/12/25 18:15) Oxygen By Nasal Cannula (10/12/25 18:11) Stat Ekg For Chest Pain (10/12/25 18:11) Notify Md Of Changes From Base (10/12/25 18:11) Child Care Nurse For 24 Hours (10/12/25 18:11) Emergency Dysrhythmia Protocol (10/12/25 18:11) Rhythm Strips Once Every Shift (10/12/25 18:11) Morphine Sulfate Injection (10/12/25 18:15) * Radiologist Consult (10/12/25 18:14) Lactated Ringer's (10/12/25 18:15) Covid19 Antigen Chrissy (10/12/25 ) Rapid Influenza A&B (10/12/25 18:14) Pantoprazole (Protonix) (10/12/25 18:15) Mrsa Screen (10/12/25 18:14) Respiratory Culture W/ Gs (10/12/25 18:14) Ceftriaxone 1gm/50ml (Rocephin) (10/12/25 18:15) Electrocardigram (10/12/25 18:14) Azithromycin 500mg/ 250ml (Zithromax 50 (10/12/25 18:15) Rt Lower Dvt (10/12/25 18:14) Heparin Drip/D5w 100units/Ml (10/12/25 21:15) Heparin Per Pharmacy Protocol (10/13/25 01:00) PTPTT (10/13/25 01:00) Left Lower Extremity Ultrasoun (10/12/25 22:35) Vital Signs Date Time Temp Pulse Resp B/P (MAP) Pulse Ox O2 Delivery O2 Flow Rate FiO2 10/12/25 21:00 80 24 142/80 (100) 98 10/12/25 19:32 94 19 94 Nasal Cannula* 2 28 10/12/25 19:32 98.4 94 19 145/95 (112) 97 98.4 10/12/25 18:38 98.6 93 18 141/89 (106) 98 98.6 10/12/25 18:00 83 30 141/89 (106) 97 10/12/25 17:03 92 Nasal Cannula* 2 28 10/12/25 16:12 91 10/12/25 16:00 88 10/12/25 16:00 98.0 88 30 145/97 (113) 94 98.0 Laboratory Tests Test 10/12/25 11:30 10/12/25 13:37 White Blood Count 12.6 10^3/uL (4.4-10.8) H Lactic Acid Level 1.5 mmol/L (0.4-2.0) Medications Medications Dose Ordered Sig/Chandler Route Start Time Stop Time Status Last Admin Dose Admin Ceftriaxone Sodium 50 ml @ 100 mls/hr DAILY IV 10/12/25 18:15 10/18/25 23:59 10/12/25 18:15 100 MLS/HR Heparin Sodium (Porcine) 5,000 units ONCE ONCE IV 10/12/25 14:30 10/12/25 14:31 DC 10/12/25 16:17 5,000 UNITS Heparin Sodium/ Dextrose 250 ml @ 13 mls/hr [id number] IV 10/12/25 21:15 10/12/25 21:00 13 MLS/HR Heparin Sodium/ Dextrose 250 ml @ 15 mls/hr [id number] IV 10/12/25 16:30 10/12/25 21:01 DC 10/12/25 17:00 15 MLS/HR Lactated Ringer's 1,000 ml @ 75 mls/hr [id number] ONCE IV 10/12/25 18:15 10/13/25 07:34 10/12/25 18:15 75 MLS/HR Pantoprazole Sodium 40 mg DAILY IV 10/12/25 18:15 10/29/25 11:59 10/12/25 18:15 40 MG Sodium Chloride 1,000 ml @ 150 mls/hr [id number] ONCE IV 10/12/25 11:30 10/12/25 18:09 DC 10/12/25 12:13 150 MLS/HR Assessment/Plan Assessment/Plan #1 Acute chest pain r/o ACS: trops -ve ekg and tele to continue, Echo pending rule out right heart strain. BNP unremarkable. #2 Acute Hypoxic respiratory failure: on 6 L of NC, baseline no home O2, weaned to 2 L to keep > 94% spo2. #3 community acquired pneumonia/ high likelihood of aspiration pneumonia gram +ve/-ve with atypical: CXR suggestive/ right lower lobe, check MRSA. ceftriaxone and azithromycin. add vancomycin if MRSA +ve. #4 B/l Extensive pulmonary embolism: patient is not on anticoagulation, previously on warfarin, more than 6 months ago stopped. IR consult, check for DVT, IV heparin drip based on APTT. Keep NPO, iv hydration, high D dimer of 6 for pending IR procedure. #5 H/o Recurrent Right DVT: ruled out this time with US, check for left lower limb as well. #6 Sepsis/SIRS likely due to above: iv fluid, antibiotics and supportive treatment to continue, rule out additional infection, blood and urine cultures to check. #7 History of dyslipidemia: previously on statin. non adherent. continue in hospital. consider adding aspirin as thromboembolic disorder / vasculopathy. #8 Peripheral vascular disease: limb ischemia ruled out, pulses intact. #9 History of essential HTN: lifestyle controlled, not on home medications, dietary counseling, target BP 140/80 or below, acceptable BP in hospital. No current need of Meds. PUD prophylaxis: protonix 40mg daily DVT prophylaxis: heparin drip Barriers to discharge: Medical diagnosis and management in progress. Patient lives self. Independent for ADL despite being legally blind. Denies fall. Has daughter Millie, lives in [place], [place]. PT eval for fall precautions and SW consult as needed. PCP: Dr. Arevalo Specialist Relevant To Admission: IR / Cardio (interventional) for possible thrombectomy, outpatient workup needed for coagulation disoerders with custodial oral anticoagulation. Case discussed with Dr. Keenan. Code Status: Full Code. Discussion needed total 33 minutes bedside. Plan discussed with: Patient My Orders Orders - TORRI CARMEN RESIDENT Procedure Category Date Status Time Admit ADMIT 10/12/25 Transmitted 18:11 Allergies SILVINO 10/12/25 In Process 18:11 Code Status CODE 10/12/25 Transmitted 18:11 Oxygen Per Hour RT 10/12/25 Transmitted 18:11 Temazepam (Restoril) PHA 10/12/25 In Process 18:15 Ondansetron Hcl PHA 10/12/25 In Process (Zofran) 18:15 Docusate Sodium PHA 10/12/25 In Process Capsule (Colace 18:15 Fall Risk Precautions SILVINO 10/12/[address] 18:11 Complete Blood Count LAB 10/13/25 Verified 04:00 Comprehensive LAB 10/13/25 Verified Metabolic Panel 04:00 Npo (Nothing By DIET 10/12/25 Transmitted Mouth) Diet Dinner Pt Request For Service PT 10/12/25 Logged 18:11 Echo 2d Mode Cardiac US 10/12/25 Logged DOP 18:11 Condition: Critical SILVINO 10/12/25 In Process 18:11 Acetaminophen Tablet PHA 10/12/25 In Process (Tylenol Tablet) 18:15 Bedrest With Bathroom SILVINO 10/12/25 In Process Privileg 18:11 Bedside Commode SILVINO 10/12/25 In Process 18:11 Maintain Bed Rest SILVINO 10/12/25 In Process 18:11 Nitroglycerin PHA 10/12/25 In Process Sublingual (Ntrostat 18:15 Morphine Sulfate PHA 10/12/25 In Process Injection 18:15 Oxygen By Nasal RT 10/12/25 Transmitted Cannula 18:11 Stat Ekg For Chest SILVINO 10/12/25 In Process Pain 18:11 Notify Md Of Changes SILVINO 10/12/25 In Process From Base 18:11 Child Care Nurse For SILVINO 10/12/25 In Process 24 Hours 18:11 Emergency Dysrhythmia SILVINO 10/12/25 In Process Protocol 18:11 Rhythm Strips Once SILVINO 10/12/25 In Process Every Shift 18:11 Morphine Sulfate PHA 10/12/25 In Process Injection 18:15 * Radiologist Consult CONS 10/12/25 Transmitted 18:14 Lactated Ringer's PHA 10/12/25 In Process 18:15 Covid19 Antigen Chrissy LAB 10/12/25 In Process Rapid Influenza A&B LAB 10/12/25 In Process 18:14 Pantoprazole PHA 10/12/25 In Process (Protonix) 18:15 Mrsa Screen KARSON 10/12/25 Logged 18:14 Respiratory Culture KARSON 10/12/25 Logged W/ Gs 18:14 Ceftriaxone 1gm/50ml PHA 10/12/25 In Process (Rocephin) 18:15 Electrocardigram EKG 10/12/25 Logged 18:14 Azithromycin 500mg/ PHA 10/12/25 In Process 250ml (Zithromax 50 18:15 Rt Lower Dvt US 10/12/25 Resulted 18:14 Left Lower Extremity US 10/12/25 Logged Ultrasoun 22:35 Date of Service: Oct 12, 2025 Billing Provider: CLAY KEENAN MD Common Visit Codes: [id number] INP/OBS CARE (HIGH) Secondary Visit Codes: [id number] CARE PLAN 30 MINUTES TORRI CARMEN RESIDENT Oct 12, 2025 22:51
[2025-10-12 22:58] LABS: COVID19 ANTIGEN SOFIA FIA NEGATIVE (NEGATIVE)
[2025-10-12] MEDS: ATORVASTATIN 20 MG TAB PO SCH (23:09)
[2025-10-12] MEDS: LEVALBUTEROL HCL 1.25 MG/3 ML NEB NEB PRN (23:22)
[2025-10-12 23:34] VITALS: BP 142/80; PULSE 80; RESP 22; TEMP 98.4; O2SAT 97
[2025-10-13] VITALS (13 sets, daily range): BP systolic 106–143; BP diastolic 69–88; PULSE 73–92; RESP 16–20; TEMP 98–98.9; O2SAT 90–99
[2025-10-13 01:36] LABS: Hematocrit 43.0 % (41.0-53.0); Hemoglobin 14.5 g/dL (13.5-17.5); Mean Corpuscular Hemoglobin 31.7 pg (28.0-32.0); Mean Corpuscular Volume 94.2 fL (80.0-100.0); Nucleated Red Blood Cells % 0.0 %
[2025-10-13 01:49] LABS: Alanine Aminotransferase 20 U/L (7-40); Alkaline Phosphatase 68 U/L (46-116); Anion Gap 12 (5-15); BUN/Creatinine Ratio 11.7 (10.0-20.0); Blood Urea Nitrogen 9 mg/dL (9-23); Carbon Dioxide 23 mmol/L (20-31); Chloride 103 mmol/L (98-107); Potassium 3.8 mmol/L (3.5-5.1); Sodium 138 mmol/L (136-145); Total Protein 7.0 g/dL (5.7-8.2)
[2025-10-13 01:50] LABS: Albumin 3.9 g/dL (3.2-4.8); Bilirubin, Total 1.1 mg/dL (0.2-1.0); Calcium 8.5 mg/dL (8.7-10.4); Glucose 163 mg/dL (74-106)
[2025-10-13 01:52] LABS: INR 1.12 (0.9-1.15); Prothrombin Time 11.7 sec (9.3-11.8)
--- NOTE | 2025-10-13 01:57 | DVH ---
MEDICAL RECORDS NUMBER: [id number] PROCEDURE: Left lower extremity venous duplex Date: 10/12/2025 10:59 PM HISTORY: rule out DVT COMPARISON: US RT LOWER DVT on DOS: 10/12/25, CV VENOUS DOPPLER LOW EXT RT on DOS: 09/17/24, RLEAD on DOS: 11/04/22, BI LOWER DVT on DOS: 11/04/22, BLDVT on DOS: 11/04/22 TECHNIQUE: Real-time ultrasound scan of the examination listed above with color Doppler flow, spectral waveform analysis and compression. FINDINGS: Multiple grayscale and Doppler images of the left lower extremity demonstrate thrombus within the left common femoral and femoral veins.. There is otherwise normal phasic flow, augmentation and compression of the left popliteal and upper calf veins. IMPRESSION: 1. Positive DVT in the left common femoral and femoral veins. The patient's physician was made aware of this result at this time..
[2025-10-13 02:21] LABS: Partial Thromboplastin Time 83.4 SEC (24.5-34.5)
[2025-10-13] MEDS: HEPARIN DRIP/D5W 100UNITS/ML 250 ML IV SCH (02:34)
[2025-10-13] MEDS: MORPHINE SULFATE 4 MG/ML SYR/VIAL IV PRN (09:00)
[2025-10-13 09:52] LABS: INR 1.07 (0.9-1.15); Partial Thromboplastin Time 55.5 SEC (24.5-34.5); Prothrombin Time 11.3 sec (9.3-11.8)
--- NOTE | 2025-10-13 15:47 | DVHPN2 ---
Reviewed: Care Plan, H&P Changes from previous H/P or p: No Changes General: Per HPI Eyes: No Pain, No Vision change, No Conjunctivae inflammation, No Eyelid inflammation; Other (baseline b/l blindness. ); No Redness ENT: No Ear pain, No Ear discharge, No Nose pain, No Nose discharge, No Nose congestion, No Mouth pain, No Mouth swelling, No Throat pain, No Throat swelling, No Other Cardiovascular: Chest Pain; No Palpitations, No Orthopnea, No Paroxysmal Noc. Dyspnea, No Edema, No Lt Headedness, No Other Respiratory: Cough; No Dry; Shortness of breath, SOB with excertion; No Wheezing, No Hemoptysis; Pleuritic Pain; No Sputum, No Other Gastrointestinal: No Nausea, No Vomiting, No Abdominal Pain, No Diarrhea, No Constipation, No Melena, No Hematochezia, No Other Genitourinary: No Dysuria, No Frequency, No Incontinence, No Hematuria, No Retention, No Other Musculoskeletal: No other, No neck pain, No shoulder pain, No arm pain, No back pain, No hand pain, No leg pain, No foot pain Skin: No Rash, No Lesions, No Jaundice, No Bruising, No Other Objective Vitals Vital Signs Date Time Temp Pulse Resp B/P (MAP) Pulse Ox O2 Delivery O2 Flow Rate FiO2 10/13/25 14:18 77 18 125/88 10/13/25 13:00 98.5 95 98.5 10/13/25 08:00 Nasal Cannula* 3 32 Intake/Output Intake and Output 10/13/25 07:00 Intake Total 39 ml Balance 39 ml Intake Oral 0 ml IV Total 39 ml Medications Current Medications Medications Dose Ordered Sig/Chandler Route Start Time Stop Time Status Last Admin Dose Admin Heparin Sodium/ Dextrose 250 ml @ 14.85 mls/ hr [id number] IV 10/12/25 14:30 UNV Temazepam 15 mg QHSP PRN PO 10/12/25 18:15 Ondansetron HCl 4 mg Q4HP PRN IV 10/12/25 18:15 Docusate Sodium 100 mg BIDPRN PRN PO 10/12/25 18:15 Acetaminophen 650 mg Q6HP PRN PO 10/12/25 18:15 Morphine Sulfate 2 mg Q4HPRN PRN IV 10/12/25 18:15 10/13/25 14:18 2 MG Nitroglycerin 0.4 mg Q5MINP PRN SL 10/12/25 18:15 Morphine Sulfate 2 mg Q30M PRN IV 10/12/25 18:15 Pantoprazole Sodium 40 mg DAILY IV 10/12/25 18:15 10/29/25 11:59 10/13/25 09:02 40 MG Ceftriaxone Sodium 50 ml @ 100 mls/hr DAILY IV 10/12/25 18:15 10/18/25 23:59 10/13/25 09:03 100 MLS/HR Azithromycin 250 ml @ 125 mls/hr DAILY IV 10/12/25 18:15 10/18/25 23:59 10/13/25 09:03 125 MLS/HR Levalbuterol HCl 0.625 mg Q6HWA PRN NEB 10/12/25 22:45 10/12/25 23:22 0.625 MG Atorvastatin Calcium 40 mg HS PO 10/12/25 23:00 10/12/25 23:09 40 MG Heparin Sodium/ Dextrose 250 ml @ 11 mls/hr [id number] IV 10/13/25 02:30 10/13/25 12:00 11 MLS/HR Laboratory Results Laboratory Tests 10/13/25 01:17 Chemistry Test 10/13/25 01:17 Albumin 3.9 g/dL (3.2-4.8) Calcium Level 8.5 mg/dL (8.7-10.4) L Total Protein 7.0 g/dL (5.7-8.2) Coagulation Test 10/12/25 19:09 10/13/25 01:17 10/13/25 08:58 10/13/25 15:38 Prothrombin Time 11.8 sec (9.3-11.8) 11.7 sec (9.3-11.8) 11.3 sec (9.3-11.8) Pending Prothrombin Time INR 1.13 (0.9-1.15) 1.12 (0.9-1.15) 1.07 (0.9-1.15) Pending Activated Partial Thromboplast Time 82.1 SEC (24.5-34.5) *H 83.4 SEC (24.5-34.5) *H 55.5 SEC (24.5-34.5) H Pending LFT Test 10/13/25 01:17 Alanine Aminotransferase (ALT) 20 U/L (7-40) Alkaline Phosphatase 68 U/L (46-116) Aspartate Amino Transferase (AST) 20 U/L (13-40) Total Bilirubin 1.1 mg/dL (0.2-1.0) H Microbiology Microbiology Date/Time Source Procedure Growth Status 10/13/25 07:35 Nose MRSA Screen - Final Complete 10/12/25 13:59 Blood Blood Culture - Preliminary NO GROWTH AFTER 24 HOURS OF INCUBATION. Resulted Assessment/Plan Assessment/Plan Mr. Mckay, a 64 year old male with PmHx of Dyslipidemia, recurrent DVT, pulmonary embolism, hypertension, copd and legal blindness presenting to the ED with chief complaint of sudden onset sharp, right sided chest pain at rest. aggravated by deep breathing, associated with gradually progressive shortness of breath even at rest for past 4-5 days. Patient reached out to Dr. Arevalo's office where he was found to be in acute hypoxic respiratory failure and [facility]. Patient relays that he has used an inhaler he had at home with no relief in his symptoms noted. Patient denies any N/V/D, dizziness, headache, sick contact, immobilization abdominal pain, cough, hemoptysis, or fever. Prior hospitalization was due to thromboembolism as well and the patient was previously on warfarin 5 mg daily. Patient is off of warfarin and all oral medications for past few months. Lives by himself in his house, ADL with a cane, Daughter Millie who lives at [place], [place] occasionally comes and helps with doctors appointments and care. #1 Acute chest pain r/o ACS: trops -ve ekg and tele to continue, Echo pending rule out right heart strain. BNP unremarkable. #2 Acute Hypoxic respiratory failure: on 6 L of NC, baseline no home O2, weaned to 2 L to keep > 94% spo2. #3 community acquired pneumonia/ high likelihood of aspiration pneumonia gram +ve/-ve with atypical: CXR suggestive/ right lower lobe, check MRSA. ceftriaxone and azithromycin. add vancomycin if MRSA +ve. #4 B/l Extensive pulmonary embolism: patient is not on anticoagulation, previously on warfarin, more than 6 months ago stopped. IR consult, check for DVT, IV heparin drip based on APTT. Keep NPO, iv hydration, high D dimer of 6 for pending IR procedure. #5 H/o Recurrent Right DVT: ruled out this time with US, check for left lower limb as well. #6 Sepsis/SIRS likely due to above: iv fluid, antibiotics and supportive treatment to continue, rule out additional infection, blood and urine cultures to check. #7 History of dyslipidemia: previously on statin. non adherent. continue in hospital. consider adding aspirin as thromboembolic disorder / vasculopathy. #8 Peripheral vascular disease: limb ischemia ruled out, pulses intact. #9 History of essential HTN: lifestyle controlled, not on home medications, dietary counseling, target BP 140/80 or below, acceptable BP in hospital. No current need of Meds. Plan discussed with: Patient Date of Service: Oct 13, 2025 Billing Provider: ASIA IGNACIO DO Common Visit Codes: [id number] INP/OBS CARE(HIGH) ASIA IGNACIO DO Oct 13, 2025 15:47
[2025-10-13 16:07] LABS: INR 1.06 (0.9-1.15); Partial Thromboplastin Time 56.1 SEC (24.5-34.5); Prothrombin Time 11.2 sec (9.3-11.8)
[2025-10-13 22:05] LABS: INR 1.08 (0.9-1.15); Partial Thromboplastin Time 57.2 SEC (24.5-34.5); Prothrombin Time 11.4 sec (9.3-11.8)
[2025-10-14] VITALS (13 sets, daily range): BP systolic 104–139; BP diastolic 68–86; PULSE 72–105; RESP 16–28; TEMP 93–99.5; O2SAT 88–93
[2025-10-14 05:32] LABS: Urine Protein, UAD TRACE (Negative)
[2025-10-14 07:49] LABS: INR 1.05 (0.9-1.15); Partial Thromboplastin Time 48.4 SEC (24.5-34.5); Prothrombin Time 11.1 sec (9.3-11.8)
--- NOTE | 2025-10-14 08:52 | CONS ---
Pharmacy Clinical Information: INCREASE HEPARIN DRIP RATE TO 1300 UNITS/HR PER APTT OF 48.4 NEXT APTT DRAW SCHEDULED FOR 1500 PER RX PROTOCOL EDISON MARTIN CONFIRMED AND READ BACK Becky Lopez PHARMACIST Oct 14, 2025 08:52
[2025-10-14] MEDS: HEPARIN DRIP/D5W 100UNITS/ML 250 ML IV SCH ×2 (09:00→16:44)
--- NOTE | 2025-10-14 15:01 | DVHSR ---
APPROVED REPORT EXAM: Two-dimensional and M-mode echocardiogram with Doppler and color Doppler. Blood Pressure: 142/87 mmHg INDICATION r/o right heart strain RISK FACTORS Height: 5'7", Weight: 187 DIMENSIONS LVDd 3.6 (3.8-5.7cm) LA (2D) 3.8 (1.9-4.0cm) Aortic Root 3.4 (2.0-3.7cm) LVDs 2.0 (2.5-4.0cm) LA (MM) (1.9-4.0cm) Aortic Cusp Exc 1.4 (1.5-2.0cm) EF (%) 76.0 (55-70%) Rt. Atrium (1.9-4.0cm) Asc. Aorta 3.5 cm IVSd 0.9 (0.7-1.1cm) RV (D) (1.8-2.4cm) PWd 0.4 (0.7-1.1cm) Mitral Valve Mitral Mitral Stenosis E wave 0.64m/s MV Mean GR. mmHg A wave 0.83m/s MV Peak GR. mmHg E/A ratio 0.8 2D MVA cm2 DECEL Time 284ms PRESS 1/2 Time ms Aortic Valve Aortic Valve Aortic Stenosis V1 1.06m/s AO Mean GR. 5mmHg V2 1.52m/s AO Peak GR. 9mmHg LVOT Diameter 2.2 (1.8-2.4cm) Doppler TENZIN 2.65cm2 Pulmonic Valve V2 1.13m/s Other Information Quality : Technically Limited Rhythm : Technically limited study due to body habitus. Conclusion Technically good study. Sinus rhythm. Normal chamber sizes. Valves appear to be structurally normal. EF of 60% with normal RV function. Mild TR. No pericardial effusion noted. No intracardiac masses thrombi or vegetations discernible.
[2025-10-14 16:00] LABS: INR 1.07 (0.9-1.15); Partial Thromboplastin Time 45.8 SEC (24.5-34.5); Prothrombin Time 11.3 sec (9.3-11.8)
--- NOTE | 2025-10-14 16:19 | CONS ---
Pharmacy Clinical Information: INCREASE HEPARIN DRIP RATE TO 1500 UNITS/HR PER APTT OF 45.8 NEXT APTT DRAW SCHEDULED FOR 2230 PER RX PROTOCOL EDISON HANNAH CONFIRMED AND READ BACK Becky Lopez PHARMACIST Oct 14, 2025 16:19
[2025-10-14 23:52] LABS: INR 1.11 (0.9-1.15); Prothrombin Time 11.6 sec (9.3-11.8)
[2025-10-15] VITALS (12 sets, daily range): BP systolic 106–130; BP diastolic 63–84; PULSE 59–74; RESP 18–20; TEMP 97.6–98.2; O2SAT 90–95
[2025-10-15 00:02] LABS: Partial Thromboplastin Time 88.9 SEC (24.5-34.5)
[2025-10-15] MEDS: HEPARIN DRIP/D5W 100UNITS/ML 250 ML IV SCH ×2 (06:35→09:27)
[2025-10-15 07:47] LABS: Hematocrit 39.8 % (41.0-53.0); Hemoglobin 13.6 g/dL (13.5-17.5); Mean Corpuscular Hemoglobin 32.0 pg (28.0-32.0); Mean Corpuscular Volume 93.5 fL (80.0-100.0); Nucleated Red Blood Cells % 0.1 %
[2025-10-15 08:11] LABS: INR 1.12 (0.9-1.15); Prothrombin Time 11.7 sec (9.3-11.8)
[2025-10-15 08:13] LABS: Partial Thromboplastin Time 99.1 SEC (24.5-34.5)
--- NOTE | 2025-10-15 08:47 | CONS ---
Pharmacy Clinical Information: DECREASE HEPARIN RATE TO 10 ML/HR DUE TO APTT OF 99.1 PER RX PROTOCOL. NEXT APTT ON 10/15 AT 1530. EDISON HANNAH CONFIRMED AND READ BACK KEVIN LARSON PHARMACIST Oct 15, 2025 08:47
[2025-10-15 16:05] LABS: INR 1.05 (0.9-1.15); Partial Thromboplastin Time 56.5 SEC (24.5-34.5); Prothrombin Time 11.1 sec (9.3-11.8)
[2025-10-16] VITALS (12 sets, daily range): BP systolic 96–140; BP diastolic 66–89; PULSE 63–75; RESP 16–19; TEMP 97.6–98.4; O2SAT 65–96
[2025-10-16 00:05] LABS: INR 1.05 (0.9-1.15); Partial Thromboplastin Time 50.4 SEC (24.5-34.5); Prothrombin Time 11.1 sec (9.3-11.8)
[2025-10-16 07:04] LABS: INR 1.0 (0.9-1.15); Partial Thromboplastin Time 32.2 SEC (24.5-34.5); Prothrombin Time 10.6 sec (9.3-11.8)
--- NOTE | 2025-10-16 09:09 | CONS ---
Pharmacy Clinical Information: GAVE X1 BOLUS 5000 UNITS + INCREASE HEPARIN RATE TO 13 ML/HR DUE TO APTT OF 32.2 PER RX PROTOCOL. NEXT APTT ON 10/16 AT 1209. EDISON SCHULZ CONFIRMED AND READ BACK KEVIN LARSON PHARMACIST Oct 16, 2025 09:09
[2025-10-16] MEDS: HEPARIN SODIUM (PORCINE) 5000 UNITS/ML 1ML VIAL IV ONE (09:14)
[2025-10-16] MEDS: HEPARIN DRIP/D5W 100UNITS/ML 250 ML IV SCH (09:14)
[2025-10-16 15:57] LABS: INR 1.08 (0.9-1.15); Partial Thromboplastin Time 65.9 SEC (24.5-34.5); Prothrombin Time 11.4 sec (9.3-11.8)
[2025-10-16 22:08] LABS: INR 1.06 (0.9-1.15); Prothrombin Time 11.2 sec (9.3-11.8)
[2025-10-16 22:11] LABS: Partial Thromboplastin Time 71.5 SEC (24.5-34.5)
[2025-10-17] VITALS (11 sets, daily range): BP systolic 94–149; BP diastolic 58–73; PULSE 60–84; RESP 15–18; TEMP 97.4–98.5; O2SAT 90–99
--- NOTE | 2025-10-17 01:46 | DVHPN2 ---
Reviewed: Care Plan, H&P Changes from previous H/P or p: No Changes General: Per HPI Eyes: Other ENT: No Ear pain, No Ear discharge, No Nose pain, No Nose discharge, No Nose congestion, No Mouth pain, No Mouth swelling, No Throat pain, No Throat swelling, No Other Cardiovascular: Chest Pain Respiratory: Cough, Shortness of breath, SOB with excertion, Pleuritic Pain Gastrointestinal: No Nausea, No Vomiting, No Abdominal Pain, No Diarrhea, No Constipation, No Melena, No Hematochezia, No Other Genitourinary: No Dysuria, No Frequency, No Incontinence, No Hematuria, No Retention, No Other Musculoskeletal: No other, No neck pain, No shoulder pain, No arm pain, No back pain, No hand pain, No leg pain, No foot pain Skin: No Rash, No Lesions, No Jaundice, No Bruising, No Other Objective Vitals Vital Signs Date Time Temp Pulse Resp B/P (MAP) Pulse Ox O2 Delivery O2 Flow Rate FiO2 10/17/25 01:00 97.7 65 18 112/58 (76) 95 97.7 10/16/25 20:00 Nasal Cannula* 5 40 Intake/Output Intake and Output 10/17/25 07:00 Intake Total 540 ml Output Total 400 ml Balance 140 ml Intake Oral 240 ml IV Total 300 ml Output Urine Total 400 ml # Bowel Movements 1 Medications Current Medications Medications Dose Ordered Sig/Chandler Route Start Time Stop Time Status Last Admin Dose Admin Heparin Sodium/ Dextrose 250 ml @ 14.85 mls/ hr [id number] IV 10/12/25 14:30 UNV Temazepam 15 mg QHSP PRN PO 10/12/25 18:15 Ondansetron HCl 4 mg Q4HP PRN IV 10/12/25 18:15 Docusate Sodium 100 mg BIDPRN PRN PO 10/12/25 18:15 Acetaminophen 650 mg Q6HP PRN PO 10/12/25 18:15 Morphine Sulfate 2 mg Q4HPRN PRN IV 10/12/25 18:15 10/16/25 20:35 2 MG Nitroglycerin 0.4 mg Q5MINP PRN SL 10/12/25 18:15 Morphine Sulfate 2 mg Q30M PRN IV 10/12/25 18:15 Pantoprazole Sodium 40 mg DAILY IV 10/12/25 18:15 10/29/25 11:59 10/16/25 09:01 40 MG Ceftriaxone Sodium 50 ml @ 100 mls/hr DAILY IV 10/12/25 18:15 10/18/25 23:59 10/16/25 09:01 100 MLS/HR Azithromycin 250 ml @ 125 mls/hr DAILY IV 10/12/25 18:15 10/18/25 23:59 10/16/25 10:02 125 MLS/HR Levalbuterol HCl 0.625 mg Q6HWA PRN NEB 10/12/25 22:45 10/16/25 14:56 0.625 MG Atorvastatin Calcium 40 mg HS PO 10/12/25 23:00 10/16/25 20:57 40 MG Heparin Sodium/ Dextrose 250 ml @ 13 mls/hr [id number] IV 10/16/25 09:00 10/16/25 09:14 13 MLS/HR Laboratory Results Laboratory Tests 10/13/25 01:17 10/15/25 06:52 Coagulation Test 10/16/25 06:09 10/16/25 14:52 10/16/25 21:22 Prothrombin Time 10.6 sec (9.3-11.8) 11.4 sec (9.3-11.8) 11.2 sec (9.3-11.8) Prothrombin Time INR 1.00 (0.9-1.15) 1.08 (0.9-1.15) 1.06 (0.9-1.15) Activated Partial Thromboplast Time 32.2 SEC (24.5-34.5) 65.9 SEC (24.5-34.5) H 71.5 SEC (24.5-34.5) *H Urinalysis Test 10/14/25 04:13 Urine Color Dark-yellow (Yellow) Urine Clarity Clear (Clear) Urine pH 5.5 (5.0-9.0) Urine Specific [place] 1.031 (1.001-1.035) Urine Protein Trace (Negative) H Urine Ketones 1+ (Negative) H Urine Blood Negative /uL (Negative) Urine Nitrite Negative (Negative) Urine Bilirubin Negative (Negative) Urine Urobilinogen Over mg/dL (Negative) Urine Leukocyte Esterase Negative /uL (Negative) Urine RBC None seen /hpf (0 - 3) Urine Microscopic WBC 1 /HPF (0-3) Urine Squamous Epithelial Cells None seen /hpf (<5) Urine Bacteria None seen /hpf (None Seen) Urine Mucus Few (None Seen) Urine Glucose Normal mg/dL (Normal) Microbiology Microbiology Date/Time Source Procedure Growth Status 10/13/25 07:35 Nose MRSA Screen - Final Complete 10/12/25 13:59 Blood Blood Culture - Preliminary NO GROWTH AFTER 72 HOURS OF INCUBATION. Resulted Labs and/or images reviewed: Labs reviewed by me, Image(s) reviewed by me Assessment/Plan Assessment/Plan Mr. Mckay, a 64 year old male with PmHx of Dyslipidemia, recurrent DVT, pulmonary embolism, hypertension, copd and legal blindness presenting to the ED with chief complaint of sudden onset sharp, right sided chest pain at rest. aggravated by deep breathing, associated with gradually progressive shortness of breath even at rest for past 4-5 days. Patient reached out to Dr. Arevalo's office where he was found to be in acute hypoxic respiratory failure and was BIBA to [facility] ER for further evaluation. Patient relays that he has used an inhaler he had at home with no relief in his symptoms noted. Patient denies any N/V/D, dizziness, headache, sick contact, immobilization abdominal pain, cough, hemoptysis, or fever. Prior hospitalization was due to thromboembolism as well and the patient was previously on warfarin 5 mg daily. Patient is off of warfarin and all oral medications for past few months. Lives by himself in his house, ADL with a cane, Daughter Millie who lives at [place], [place] occasionally comes and helps with doctors appointments and care. #1 Acute chest pain r/o ACS: trops -ve ekg and tele to continue, Echo pending rule out right heart strain. BNP unremarkable. #2 Acute Hypoxic respiratory failure: on 6 L of NC, baseline no home O2, weaned to 2 L to keep > 94% spo2. #3 community acquired pneumonia/ high likelihood of aspiration pneumonia gram +ve/-ve with atypical: CXR suggestive/ right lower lobe, check MRSA. ceftriaxone and azithromycin. add vancomycin if MRSA +ve. #4 B/l Extensive pulmonary embolism: patient is not on anticoagulation, previously on warfarin, more than 6 months ago stopped. IR consult, check for DVT, IV heparin drip based on APTT. Keep NPO, iv hydration, high D dimer of 6 for pending IR procedure. #5 H/o Recurrent Right DVT: ruled out this time with US, check for left lower limb as well. #6 Sepsis/SIRS likely due to above: iv fluid, antibiotics and supportive treatment to continue, rule out additional infection, blood and urine cultures to check. #7 History of dyslipidemia: previously on statin. non adherent. continue in hospital. consider adding aspirin as thromboembolic disorder / vasculopathy. #8 Peripheral vascular disease: limb ischemia ruled out, pulses intact. #9 History of essential HTN: lifestyle controlled, not on home medications, dietary counseling, target BP 140/80 or below, acceptable BP in hospital. No current need of Meds. Plan discussed with: Patient My Orders Orders - ASIA IGNACIO DO Procedure Category Date Status Time Comprehensive LAB 10/17/25 Logged Metabolic Panel 04:00 Date of Service: Oct 14, 2025 Billing Provider: ASIA IGNACIO DO Common Visit Codes: [id number] INP/OBS CARE(HIGH) ASIA IGNACIO DO Oct 17, 2025 01:46
--- NOTE | 2025-10-17 01:47 | DVHPN2 ---
Reviewed: Care Plan, H&P Changes from previous H/P or p: No Changes General: Per HPI Eyes: Other ENT: No Ear pain, No Ear discharge, No Nose pain, No Nose discharge, No Nose congestion, No Mouth pain, No Mouth swelling, No Throat pain, No Throat swelling, No Other Cardiovascular: Chest Pain Respiratory: Cough, Shortness of breath, SOB with excertion, Pleuritic Pain Gastrointestinal: No Nausea, No Vomiting, No Abdominal Pain, No Diarrhea, No Constipation, No Melena, No Hematochezia, No Other Genitourinary: No Dysuria, No Frequency, No Incontinence, No Hematuria, No Retention, No Other Musculoskeletal: No other, No neck pain, No shoulder pain, No arm pain, No back pain, No hand pain, No leg pain, No foot pain Skin: No Rash, No Lesions, No Jaundice, No Bruising, No Other Objective Vitals Vital Signs Date Time Temp Pulse Resp B/P (MAP) Pulse Ox O2 Delivery O2 Flow Rate FiO2 10/17/25 01:00 97.7 65 18 112/58 (76) 95 97.7 10/16/25 20:00 Nasal Cannula* 5 40 Intake/Output Intake and Output 10/17/25 07:00 Intake Total 540 ml Output Total 400 ml Balance 140 ml Intake Oral 240 ml IV Total 300 ml Output Urine Total 400 ml # Bowel Movements 1 Medications Current Medications Medications Dose Ordered Sig/Chandler Route Start Time Stop Time Status Last Admin Dose Admin Heparin Sodium/ Dextrose 250 ml @ 14.85 mls/ hr [id number] IV 10/12/25 14:30 UNV Temazepam 15 mg QHSP PRN PO 10/12/25 18:15 Ondansetron HCl 4 mg Q4HP PRN IV 10/12/25 18:15 Docusate Sodium 100 mg BIDPRN PRN PO 10/12/25 18:15 Acetaminophen 650 mg Q6HP PRN PO 10/12/25 18:15 Morphine Sulfate 2 mg Q4HPRN PRN IV 10/12/25 18:15 10/16/25 20:35 2 MG Nitroglycerin 0.4 mg Q5MINP PRN SL 10/12/25 18:15 Morphine Sulfate 2 mg Q30M PRN IV 10/12/25 18:15 Pantoprazole Sodium 40 mg DAILY IV 10/12/25 18:15 10/29/25 11:59 10/16/25 09:01 40 MG Ceftriaxone Sodium 50 ml @ 100 mls/hr DAILY IV 10/12/25 18:15 10/18/25 23:59 10/16/25 09:01 100 MLS/HR Azithromycin 250 ml @ 125 mls/hr DAILY IV 10/12/25 18:15 10/18/25 23:59 10/16/25 10:02 125 MLS/HR Levalbuterol HCl 0.625 mg Q6HWA PRN NEB 10/12/25 22:45 10/16/25 14:56 0.625 MG Atorvastatin Calcium 40 mg HS PO 10/12/25 23:00 10/16/25 20:57 40 MG Heparin Sodium/ Dextrose 250 ml @ 13 mls/hr [id number] IV 10/16/25 09:00 10/16/25 09:14 13 MLS/HR Laboratory Results Laboratory Tests 10/13/25 01:17 10/15/25 06:52 Coagulation Test 10/16/25 06:09 10/16/25 14:52 10/16/25 21:22 Prothrombin Time 10.6 sec (9.3-11.8) 11.4 sec (9.3-11.8) 11.2 sec (9.3-11.8) Prothrombin Time INR 1.00 (0.9-1.15) 1.08 (0.9-1.15) 1.06 (0.9-1.15) Activated Partial Thromboplast Time 32.2 SEC (24.5-34.5) 65.9 SEC (24.5-34.5) H 71.5 SEC (24.5-34.5) *H Urinalysis Test 10/14/25 04:13 Urine Color Dark-yellow (Yellow) Urine Clarity Clear (Clear) Urine pH 5.5 (5.0-9.0) Urine Specific [place] 1.031 (1.001-1.035) Urine Protein Trace (Negative) H Urine Ketones 1+ (Negative) H Urine Blood Negative /uL (Negative) Urine Nitrite Negative (Negative) Urine Bilirubin Negative (Negative) Urine Urobilinogen Over mg/dL (Negative) Urine Leukocyte Esterase Negative /uL (Negative) Urine RBC None seen /hpf (0 - 3) Urine Microscopic WBC 1 /HPF (0-3) Urine Squamous Epithelial Cells None seen /hpf (<5) Urine Bacteria None seen /hpf (None Seen) Urine Mucus Few (None Seen) Urine Glucose Normal mg/dL (Normal) Microbiology Microbiology Date/Time Source Procedure Growth Status 10/13/25 07:35 Nose MRSA Screen - Final Complete 10/12/25 13:59 Blood Blood Culture - Preliminary NO GROWTH AFTER 72 HOURS OF INCUBATION. Resulted Assessment/Plan Assessment/Plan Mr. Mckay, a 64 year old male with PmHx of Dyslipidemia, recurrent DVT, pulmonary embolism, hypertension, copd and legal blindness presenting to the ED with chief complaint of sudden onset sharp, right sided chest pain at rest. aggravated by deep breathing, associated with gradually progressive shortness of breath even at rest for past 4-5 days. Patient reached out to Dr. Arevalo's office where he was found to be in acute hypoxic respiratory failure and [facility]. Patient relays that he has used an inhaler he had at home with no relief in his symptoms noted. Patient denies any N/V/D, dizziness, headache, sick contact, immobilization abdominal pain, cough, hemoptysis, or fever. Prior hospitalization was due to thromboembolism as well and the patient was previously on warfarin 5 mg daily. Patient is off of warfarin and all oral medications for past few months. Lives by himself in his house, ADL with a cane, Daughter Millie who lives at [place], [place] occasionally comes and helps with doctors appointments and care. #1 Acute chest pain r/o ACS: trops -ve ekg and tele to continue, Echo pending rule out right heart strain. BNP unremarkable. #2 Acute Hypoxic respiratory failure: on 6 L of NC, baseline no home O2, weaned to 2 L to keep > 94% spo2. #3 community acquired pneumonia/ high likelihood of aspiration pneumonia gram +ve/-ve with atypical: CXR suggestive/ right lower lobe, check MRSA. ceftriaxone and azithromycin. add vancomycin if MRSA +ve. #4 B/l Extensive pulmonary embolism: patient is not on anticoagulation, previously on warfarin, more than 6 months ago stopped. IR consult, check for DVT, IV heparin drip based on APTT. Keep NPO, iv hydration, high D dimer of 6 for pending IR procedure. #5 H/o Recurrent Right DVT: ruled out this time with US, check for left lower limb as well. #6 Sepsis/SIRS likely due to above: iv fluid, antibiotics and supportive treatment to continue, rule out additional infection, blood and urine cultures to check. #7 History of dyslipidemia: previously on statin. non adherent. continue in hospital. consider adding aspirin as thromboembolic disorder / vasculopathy. #8 Peripheral vascular disease: limb ischemia ruled out, pulses intact. #9 History of essential HTN: lifestyle controlled, not on home medications, dietary counseling, target BP 140/80 or below, acceptable BP in hospital. No current need of Meds. Plan discussed with: Patient My Orders Orders - ASIA IGNACIO DO Procedure Category Date Status Time Comprehensive LAB 10/17/25 Logged Metabolic Panel 04:00 Date of Service: Oct 16, 2025 Billing Provider: ASIA IGNACIO DO Common Visit Codes: [id number] INP/OBS CARE(HIGH) ASIA IGNACIO DO Oct 17, 2025 01:47
--- NOTE | 2025-10-17 01:47 | DVHPN2 ---
Reviewed: Care Plan, H&P Changes from previous H/P or p: No Changes General: Per HPI Eyes: Other ENT: No Ear pain, No Ear discharge, No Nose pain, No Nose discharge, No Nose congestion, No Mouth pain, No Mouth swelling, No Throat pain, No Throat swelling, No Other Cardiovascular: Chest Pain Respiratory: Cough, Shortness of breath, SOB with excertion, Pleuritic Pain Gastrointestinal: No Nausea, No Vomiting, No Abdominal Pain, No Diarrhea, No Constipation, No Melena, No Hematochezia, No Other Genitourinary: No Dysuria, No Frequency, No Incontinence, No Hematuria, No Retention, No Other Musculoskeletal: No other, No neck pain, No shoulder pain, No arm pain, No back pain, No hand pain, No leg pain, No foot pain Skin: No Rash, No Lesions, No Jaundice, No Bruising, No Other Objective Vitals Vital Signs Date Time Temp Pulse Resp B/P (MAP) Pulse Ox O2 Delivery O2 Flow Rate FiO2 10/17/25 01:00 97.7 65 18 112/58 (76) 95 97.7 10/16/25 20:00 Nasal Cannula* 5 40 Intake/Output Intake and Output 10/17/25 07:00 Intake Total 540 ml Output Total 400 ml Balance 140 ml Intake Oral 240 ml IV Total 300 ml Output Urine Total 400 ml # Bowel Movements 1 Medications Current Medications Medications Dose Ordered Sig/Chandler Route Start Time Stop Time Status Last Admin Dose Admin Heparin Sodium/ Dextrose 250 ml @ 14.85 mls/ hr [id number] IV 10/12/25 14:30 UNV Temazepam 15 mg QHSP PRN PO 10/12/25 18:15 Ondansetron HCl 4 mg Q4HP PRN IV 10/12/25 18:15 Docusate Sodium 100 mg BIDPRN PRN PO 10/12/25 18:15 Acetaminophen 650 mg Q6HP PRN PO 10/12/25 18:15 Morphine Sulfate 2 mg Q4HPRN PRN IV 10/12/25 18:15 10/16/25 20:35 2 MG Nitroglycerin 0.4 mg Q5MINP PRN SL 10/12/25 18:15 Morphine Sulfate 2 mg Q30M PRN IV 10/12/25 18:15 Pantoprazole Sodium 40 mg DAILY IV 10/12/25 18:15 10/29/25 11:59 10/16/25 09:01 40 MG Ceftriaxone Sodium 50 ml @ 100 mls/hr DAILY IV 10/12/25 18:15 10/18/25 23:59 10/16/25 09:01 100 MLS/HR Azithromycin 250 ml @ 125 mls/hr DAILY IV 10/12/25 18:15 10/18/25 23:59 10/16/25 10:02 125 MLS/HR Levalbuterol HCl 0.625 mg Q6HWA PRN NEB 10/12/25 22:45 10/16/25 14:56 0.625 MG Atorvastatin Calcium 40 mg HS PO 10/12/25 23:00 10/16/25 20:57 40 MG Heparin Sodium/ Dextrose 250 ml @ 13 mls/hr [id number] IV 10/16/25 09:00 10/16/25 09:14 13 MLS/HR Laboratory Results Laboratory Tests 10/13/25 01:17 10/15/25 06:52 Coagulation Test 10/16/25 06:09 10/16/25 14:52 10/16/25 21:22 Prothrombin Time 10.6 sec (9.3-11.8) 11.4 sec (9.3-11.8) 11.2 sec (9.3-11.8) Prothrombin Time INR 1.00 (0.9-1.15) 1.08 (0.9-1.15) 1.06 (0.9-1.15) Activated Partial Thromboplast Time 32.2 SEC (24.5-34.5) 65.9 SEC (24.5-34.5) H 71.5 SEC (24.5-34.5) *H Urinalysis Test 10/14/25 04:13 Urine Color Dark-yellow (Yellow) Urine Clarity Clear (Clear) Urine pH 5.5 (5.0-9.0) Urine Specific [place] 1.031 (1.001-1.035) Urine Protein Trace (Negative) H Urine Ketones 1+ (Negative) H Urine Blood Negative /uL (Negative) Urine Nitrite Negative (Negative) Urine Bilirubin Negative (Negative) Urine Urobilinogen Over mg/dL (Negative) Urine Leukocyte Esterase Negative /uL (Negative) Urine RBC None seen /hpf (0 - 3) Urine Microscopic WBC 1 /HPF (0-3) Urine Squamous Epithelial Cells None seen /hpf (<5) Urine Bacteria None seen /hpf (None Seen) Urine Mucus Few (None Seen) Urine Glucose Normal mg/dL (Normal) Microbiology Microbiology Date/Time Source Procedure Growth Status 10/13/25 07:35 Nose MRSA Screen - Final Complete 10/12/25 13:59 Blood Blood Culture - Preliminary NO GROWTH AFTER 72 HOURS OF INCUBATION. Resulted Assessment/Plan Assessment/Plan Mr. Mckay, a 64 year old male with PmHx of Dyslipidemia, recurrent DVT, pulmonary embolism, hypertension, copd and legal blindness presenting to the ED with chief complaint of sudden onset sharp, right sided chest pain at rest. aggravated by deep breathing, associated with gradually progressive shortness of breath even at rest for past 4-5 days. Patient reached out to Dr. Arevalo's office where he was found to be in acute hypoxic respiratory failure and was BIBA to [facility] ER for further evaluation. Patient relays that he has used an inhaler he had at home with no relief in his symptoms noted. Patient denies any N/V/D, dizziness, headache, sick contact, immobilization abdominal pain, cough, hemoptysis, or fever. Prior hospitalization was due to thromboembolism as well and the patient was previously on warfarin 5 mg daily. Patient is off of warfarin and all oral medications for past few months. Lives by himself in his house, ADL with a cane, Daughter Millie who lives at [place], [place] occasionally comes and helps with doctors appointments and care. #1 Acute chest pain r/o ACS: trops -ve ekg and tele to continue, Echo pending rule out right heart strain. BNP unremarkable. #2 Acute Hypoxic respiratory failure: on 6 L of NC, baseline no home O2, weaned to 2 L to keep > 94% spo2. #3 community acquired pneumonia/ high likelihood of aspiration pneumonia gram +ve/-ve with atypical: CXR suggestive/ right lower lobe, check MRSA. ceftriaxone and azithromycin. add vancomycin if MRSA +ve. #4 B/l Extensive pulmonary embolism: patient is not on anticoagulation, previously on warfarin, more than 6 months ago stopped. IR consult, check for DVT, IV heparin drip based on APTT. Keep NPO, iv hydration, high D dimer of 6 for pending IR procedure. #5 H/o Recurrent Right DVT: ruled out this time with US, check for left lower limb as well. #6 Sepsis/SIRS likely due to above: iv fluid, antibiotics and supportive treatment to continue, rule out additional infection, blood and urine cultures to check. #7 History of dyslipidemia: previously on statin. non adherent. continue in hospital. consider adding aspirin as thromboembolic disorder / vasculopathy. #8 Peripheral vascular disease: limb ischemia ruled out, pulses intact. #9 History of essential HTN: lifestyle controlled, not on home medications, dietary counseling, target BP 140/80 or below, acceptable BP in hospital. No current need of Meds. Plan discussed with: Patient My Orders Orders - ASIA IGNACIO DO Procedure Category Date Status Time Comprehensive LAB 10/17/25 Logged Metabolic Panel 04:00 Date of Service: Oct 15, 2025 Billing Provider: ASIA IGNACIO DO Common Visit Codes: [id number] INP/OBS CARE(HIGH) ASIA IGNACIO DO Oct 17, 2025 01:47
[2025-10-17 04:22] LABS: Hematocrit 40.2 % (41.0-53.0); Hemoglobin 13.5 g/dL (13.5-17.5); Mean Corpuscular Hemoglobin 31.5 pg (28.0-32.0); Mean Corpuscular Volume 93.6 fL (80.0-100.0); Nucleated Red Blood Cells % 0.1 %
[2025-10-17 04:41] LABS: Alanine Aminotransferase 40 U/L (7-40); Alkaline Phosphatase 63 U/L (46-116); Anion Gap 8 (5-15); BUN/Creatinine Ratio 14.5 (10.0-20.0); Blood Urea Nitrogen 12 mg/dL (9-23); Carbon Dioxide 24 mmol/L (20-31); Potassium 4.1 mmol/L (3.5-5.1); Sodium 140 mmol/L (136-145); Total Protein 5.7 g/dL (5.7-8.2)
[2025-10-17 05:00] LABS: Albumin 3.0 g/dL (3.2-4.8); Bilirubin, Total 0.3 mg/dL (0.2-1.0); Calcium 8.2 mg/dL (8.7-10.4); Chloride 108 mmol/L (98-107); Glucose 121 mg/dL (74-106)
[2025-10-17] MEDS: HEPARIN DRIP/D5W 100UNITS/ML 250 ML IV SCH (05:23)
--- NOTE | 2025-10-17 10:39 | ECG ---
[facility] Test Date: 2025-10-12 Test Time: 09:26:06 Pat Name: ISAURO JACK Department: [facility] ED Patient ID: [facility]-[id number] Room: [facility]1T B Gender: M Song Plugger: dr QURESHIB: 1960 Requested By: LAUREN JOSHI Order Number: [id number] Reading MD: Morgan Bhatt Measurements Intervals Dwight Rate: 91 P: 40 MS: 160 QRS: 76 QRSD: 86 T: 34 QT: 371 QTc: 457 Interpretive Statements Sinus rhythm Low voltage, precordial leads Electronically Signed On 10-18-2025 17:36:56 PST by Morgan Bhatt Please click the below link to view image of tracing.
[2025-10-17] MEDS: APIXABAN 5 MG TAB PO ONE (11:57)
--- NOTE | 2025-10-17 16:42 | MEDREC ---
[facility] ASP Intervention Section I [facility] ASP Intervention: Review courses of therapy (Patient received 6 doses of azithromycin. May consider discontinuing atypical coverage if/when clinically appropriate.) ZAMZAM SEGOVIA [facility] RESIDENT Oct 17, 2025 16:42
[2025-10-17] MEDS: APIXABAN 5 MG TAB PO SCH (21:22)
[2025-10-18] VITALS (10 sets, daily range): BP systolic 108–129; BP diastolic 64–88; PULSE 58–85; RESP 16–18; TEMP 37.2; O2SAT 90–96
--- NOTE | 2025-10-18 16:47 | DVHDS2 ---
Discharge Summary Date of Admission Oct 12, 2025 at 18:11 Date of Discharge: Oct 18, 2025 Labs/Diagnostic Data: Laboratory Results Test 10/17/25 03:20 10/16/25 21:22 10/14/25 04:13 10/12/25 22:19 White Blood Count 7.7 10^3/uL (4.4-10.8) Red Blood Count 4.29 10^6/uL (4.5-5.90) Hemoglobin 13.5 g/dL (13.5-17.5) Hematocrit 40.2 % (41.0-53.0) Mean Corpuscular Volume 93.6 fL (80.0-100.0) Mean Corpuscular Hemoglobin 31.5 pg (28.0-32.0) Mean Corpuscular Hemoglobin Concent 33.7 g/dL (32.0-36.0) Red Cell Distribution Width 13.5 % (11.8-14.3) Platelet Count 289 10^3/uL (140-450) Mean Platelet Volume 7.7 fL (6.9-10.8) Neutrophils (%) (Auto) 39.2 % (37.0-80.0) Lymphocytes (%) (Auto) 47.1 % (10.0-50.0) Monocytes (%) (Auto) 8.6 % (0.0-12.0) Eosinophils (%) (Auto) 4.0 % (0.0-7.0) Basophils (%) (Auto) 1.1 % (0.0-2.0) Neutrophils # (Auto) 3.0 10 ^3/uL (1.6-8.6) Lymphocytes # (Auto) 3.6 10 ^3/uL (0.4-5.4) Monocytes # (Auto) 0.7 10 ^3/uL (0-1.3) Eosinophils # (Auto) 0.3 10 ^3/uL (0-0.8) Basophils # (Auto) 0.1 10 ^3/uL (0-0.2) Nucleated Red Blood Cells 0.1 % Activated Partial Thromboplast Time 86.0 SEC (24.5-34.5) Sodium Level 140 mmol/L (136-145) Potassium Level 4.1 mmol/L (3.5-5.1) Chloride Level 108 mmol/L (98-107) Carbon Dioxide Level 24 mmol/L (20-31) Anion Gap 8 (5-15) Blood Urea Nitrogen 12 mg/dL (9-23) Creatinine 0.83 mg/dL (0.700-1.30) Glomerular Filtration Rate Calc 97 mL/min (>90) BUN/Creatinine Ratio 14.5 (10.0-20.0) Serum Glucose 121 mg/dL (74-106) Calcium Level 8.2 mg/dL (8.7-10.4) Total Bilirubin 0.3 mg/dL (0.2-1.0) Aspartate Amino Transferase (AST) 37 U/L (13-40) Alanine Aminotransferase (ALT) 40 U/L (7-40) Alkaline Phosphatase 63 U/L (46-116) Total Protein 5.7 g/dL (5.7-8.2) Albumin 3.0 g/dL (3.2-4.8) Prothrombin Time 11.2 sec (9.3-11.8) Prothrombin Time INR 1.06 (0.9-1.15) Urine Color Dark-yellow (Yellow) Urine Clarity Clear (Clear) Urine pH 5.5 (5.0-9.0) Urine Specific [place] 1.031 (1.001-1.035) Urine Protein Trace (Negative) Urine Ketones 1+ (Negative) Urine Blood Negative /uL (Negative) Urine Nitrite Negative (Negative) Urine Bilirubin Negative (Negative) Urine Urobilinogen Over mg/dL (Negative) Urine Leukocyte Esterase Negative /uL (Negative) Urine RBC None seen /hpf (0 - 3) Urine Microscopic WBC 1 /HPF (0-3) Urine Squamous Epithelial Cells None seen /hpf (<5) Urine Bacteria None seen /hpf (None Seen) Urine Mucus Few (None Seen) Urine Glucose Normal mg/dL (Normal) Influenza Type A Antigen Negative (Negative) Influenza Type B Antigen Negative (Negative) Test 10/12/25 22:18 10/12/25 19:09 10/12/25 13:37 10/12/25 11:30 SARS-CoV-2 Antigen (Rapid) Negative (NEGATIVE) Troponin I High Sensitivity < 3 ng/L (</=54) Lactic Acid Level 1.5 mmol/L (0.4-2.0) D-Dimer, Quantitative 6.12 mg/L FEU (0.0-0.49) Magnesium Level 2.4 mg/dL (1.6-2.6) B-Type Natriuretic Peptide 21.43 pg/mL (0-100) Other Laboratory Tests 10/17/25 03:20 Brief Hx & Hospital Course: Mr. Mckay, a 64 year old male with PmHx of Dyslipidemia, recurrent DVT, pulmonary embolism, hypertension, copd and legal blindness presenting to the ED with chief complaint of sudden onset sharp, right sided chest pain at rest. aggravated by deep breathing, associated with gradually progressive shortness of breath even at rest for past 4-5 days. Patient reached out to Dr. Arevalo's office where he was found to be in acute hypoxic respiratory failure and [facility]. Patient relays that he has used an inhaler he had at home with no relief in his symptoms noted. Patient denies any N/V/D, dizziness, headache, sick contact, immobilization abdominal pain, cough, hemoptysis, or fever. Prior hospitalization was due to thromboembolism as well and the patient was previously on warfarin 5 mg daily. Patient is off of warfarin and all oral medications for past few months. Lives by himself in his house, ADL with a cane, Daughter Millie who lives at [place], [place] occasionally comes and helps with doctors appointments and care. #1 Acute chest pain r/o ACS: trops -ve ekg and tele to continue, Echo pending rule out right heart strain. BNP unremarkable. #2 Acute Hypoxic respiratory failure: on 6 L of NC, baseline no home O2, weaned to 2 L to keep > 94% spo2. #3 community acquired pneumonia/ high likelihood of aspiration pneumonia gram +ve/-ve with atypical: CXR suggestive/ right lower lobe, check MRSA. ceftriaxone and azithromycin. add vancomycin if MRSA +ve. #4 B/l Extensive pulmonary embolism: patient is not on anticoagulation, previously on warfarin, more than 6 months ago stopped. IR consult, check for DVT, IV heparin drip based on APTT. Keep NPO, iv hydration, high D dimer of 6 for pending IR procedure. #5 H/o Recurrent Right DVT: ruled out this time with US, check for left lower limb as well. #6 Sepsis/SIRS likely due to above: iv fluid, antibiotics and supportive treatment to continue, rule out additional infection, blood and urine cultures to check. #7 History of dyslipidemia: previously on statin. non adherent. continue in hospital. consider adding aspirin as thromboembolic disorder / vasculopathy. #8 Peripheral vascular disease: limb ischemia ruled out, pulses intact. #9 History of essential HTN: lifestyle controlled, not on home medications, dietary counseling, target BP 140/80 or below, acceptable BP in hospital. No current need of Meds. improved and d/c home Condition at Discharge: Fair Final Diagnosis/Problems List see above Discharge Disposition: Home Discharge Instruct/Medications Diet: Cardiac 2g Na,low cholest Activity: No Restrictions, As Tolerated Scheduled Apixaban Base (Eliquis), 5 MG PO BID Apixaban Base (Eliquis), 10 MG PO BID Gabapentin (Gabapentin), 100 MG PO DAILY, (Reported) Rosuvastatin Calcium (Rosuvastatin Calcium), 10 MG PO DAILY, (Reported) Discontinued Medications Warfarin Sodium (Warfarin Sodium), 5 MG PO DAILY, (Reported) Discharge Statement: "Patient was advised to return to the ER or call 911 if any headaches, dizziness, shortness of breath, chest pain, abdominal pain, bleeding, fevers, or worsening of medical condition. Patient was counseled about treatment plan, medications, possible side effects, patientverbalized understanding. All questions were answered to the best of my ability. This discharge took greater then 30 minutes in planning, reviewing documentation, counseling the patient, and discussing with other team members." ASSESSMENT ASSESSMENT Assessment Date of Service: Oct 18, 2025 Billing Provider: ASIA IGNACIO DO Common Visit Codes: [id number]-JCQ/[id number] DISCH DAY >30min ASIA IGNACIO DO Oct 18, 2025 16:47
--- NOTE | 2025-10-18 16:48 | DVHPN2 ---
Reviewed: Care Plan, H&P Changes from previous H/P or p: No Changes General: Per HPI Eyes: Other ENT: No Ear pain, No Ear discharge, No Nose pain, No Nose discharge, No Nose congestion, No Mouth pain, No Mouth swelling, No Throat pain, No Throat swelling, No Other Cardiovascular: Chest Pain Respiratory: Cough, Shortness of breath, SOB with excertion, Pleuritic Pain Gastrointestinal: No Nausea, No Vomiting, No Abdominal Pain, No Diarrhea, No Constipation, No Melena, No Hematochezia, No Other Genitourinary: No Dysuria, No Frequency, No Incontinence, No Hematuria, No Retention, No Other Musculoskeletal: No other, No neck pain, No shoulder pain, No arm pain, No back pain, No hand pain, No leg pain, No foot pain Skin: No Rash, No Lesions, No Jaundice, No Bruising, No Other Objective Vitals Vital Signs Date Time Temp Pulse Resp B/P (MAP) Pulse Ox O2 Delivery O2 Flow Rate FiO2 10/18/25 13:00 98.0 58 16 108/72 (84) 95 98.0 10/18/25 10:50 Room Air 10/18/25 10:50 0 21 Intake/Output Intake and Output 10/18/25 07:00 Intake Total 1450 ml Output Total 650 ml Balance 800 ml Intake Oral 1150 ml IV Total 300 ml Output Urine Total 650 ml # Voids 2 # Bowel Movements 1 Medications Current Medications Medications Dose Ordered Sig/[place] Route Start Time Stop Time Status Last Admin Dose Admin Heparin Sodium/ Dextrose 250 ml @ 14.85 mls/ hr [id number] IV 10/12/25 14:30 UNV Temazepam 15 mg QHSP PRN PO 10/12/25 18:15 Ondansetron HCl 4 mg Q4HP PRN IV 10/12/25 18:15 Docusate Sodium 100 mg BIDPRN PRN PO 10/12/25 18:15 Acetaminophen 650 mg Q6HP PRN PO 10/12/25 18:15 Morphine Sulfate 2 mg Q4HPRN PRN IV 10/12/25 18:15 10/18/25 07:55 2 MG Nitroglycerin 0.4 mg Q5MINP PRN SL 10/12/25 18:15 Morphine Sulfate 2 mg Q30M PRN IV 10/12/25 18:15 Pantoprazole Sodium 40 mg DAILY IV 10/12/25 18:15 10/29/25 11:59 10/18/25 09:02 40 MG Ceftriaxone Sodium 50 ml @ 100 mls/hr DAILY IV 10/12/25 18:15 10/18/25 23:59 10/18/25 09:02 100 MLS/HR Azithromycin 250 ml @ 125 mls/hr DAILY IV 10/12/25 18:15 10/18/25 23:59 10/18/25 10:49 125 MLS/HR Levalbuterol HCl 0.625 mg Q6HWA PRN NEB 10/12/25 22:45 10/17/25 18:33 0.625 MG Atorvastatin Calcium 40 mg HS PO 10/12/25 23:00 10/17/25 21:24 40 MG Apixaban 10 mg BID PO 10/17/25 22:00 10/23/25 22:01 10/18/25 09:02 10 MG Laboratory Results Laboratory Tests 10/17/25 03:20 Urinalysis Test 10/14/25 04:13 Urine Color Dark-yellow (Yellow) Urine Clarity Clear (Clear) Urine pH 5.5 (5.0-9.0) Urine Specific [place] 1.031 (1.001-1.035) Urine Protein Trace (Negative) H Urine Ketones 1+ (Negative) H Urine Blood Negative /uL (Negative) Urine Nitrite Negative (Negative) Urine Bilirubin Negative (Negative) Urine Urobilinogen Over mg/dL (Negative) Urine Leukocyte Esterase Negative /uL (Negative) Urine RBC None seen /hpf (0 - 3) Urine Microscopic WBC 1 /HPF (0-3) Urine Squamous Epithelial Cells None seen /hpf (<5) Urine Bacteria None seen /hpf (None Seen) Urine Mucus Few (None Seen) Urine Glucose Normal mg/dL (Normal) Microbiology Microbiology Date/Time Source Procedure Growth Status 10/13/25 07:35 Nose MRSA Screen - Final Complete 10/12/25 13:59 Blood Blood Culture - Final NO GROWTH AFTER 5 DAYS OF INCUBATION. Complete Assessment/Plan Assessment/Plan Mr. Mckay, a 64 year old male with PmHx of Dyslipidemia, recurrent DVT, pulmonary embolism, hypertension, copd and legal blindness presenting to the ED with chief complaint of sudden onset sharp, right sided chest pain at rest. aggravated by deep breathing, associated with gradually progressive shortness of breath even at rest for past 4-5 days. Patient reached out to Dr. Arevalo's office where he was found to be in acute hypoxic respiratory failure and was BIBA to [facility] ER for further evaluation. Patient relays that he has used an inhaler he had at home with no relief in his symptoms noted. Patient denies any N/V/D, dizziness, headache, sick contact, immobilization abdominal pain, cough, hemoptysis, or fever. Prior hospitalization was due to thromboembolism as well and the patient was previously on warfarin 5 mg daily. Patient is off of warfarin and all oral medications for past few months. Lives by himself in his house, ADL with a cane, Daughter Millie who lives at [place], [place] occasionally comes and helps with doctors appointments and care. #1 Acute chest pain r/o ACS: trops -ve ekg and tele to continue, Echo pending rule out right heart strain. BNP unremarkable. #2 Acute Hypoxic respiratory failure: on 6 L of NC, baseline no home O2, weaned to 2 L to keep > 94% spo2. #3 community acquired pneumonia/ high likelihood of aspiration pneumonia gram +ve/-ve with atypical: CXR suggestive/ right lower lobe, check MRSA. ceftriaxone and azithromycin. add vancomycin if MRSA +ve. #4 B/l Extensive pulmonary embolism: patient is not on anticoagulation, previously on warfarin, more than 6 months ago stopped. IR consult, check for DVT, IV heparin drip based on APTT. Keep NPO, iv hydration, high D dimer of 6 for pending IR procedure. #5 H/o Recurrent Right DVT: ruled out this time with US, check for left lower limb as well. #6 Sepsis/SIRS likely due to above: iv fluid, antibiotics and supportive treatment to continue, rule out additional infection, blood and urine cultures to check. #7 History of dyslipidemia: previously on statin. non adherent. continue in hospital. consider adding aspirin as thromboembolic disorder / vasculopathy. #8 Peripheral vascular disease: limb ischemia ruled out, pulses intact. #9 History of essential HTN: lifestyle controlled, not on home medications, dietary counseling, target BP 140/80 or below, acceptable BP in hospital. No current need of Meds. Plan discussed with: Patient My Orders Orders - ASIA IGNACIO DO Procedure Category Date Status Time Discharge DISCHARGE 10/18/25 Transmitted 16:42 Date of Service: Oct 17, 2025 Billing Provider: ASIA IGNACIO DO Common Visit Codes: [id number] INP/OBS CARE(HIGH) ASIA IGNACIO DO Oct 18, 2025 16:48
[2025-10-18] MEDS ORDERED: APIX5TAB4 PO (20:21)
[2025-10-18] MEDS ORDERED: APIX5TAB PO (20:56)
== END 2025-10-18 22:20 | disposition home or self-care (01) | DRG 871 ==
LOC: ER 09:23 → EDBD 09:23 → OVERFLOW 18:11 → TELE-WESTW 23:51
PROVIDERS: ADMIT Internal Medicine; ATTEND Internal Medicine
DX: A41.9 Sepsis, unspecified organism (principal); I26.99 Other pulmonary embolism without acute cor pulmonale; J96.01 Acute respiratory failure with hypoxia; J15.69 Pneumonia due to other Gram-negative bacteria; J15.9 Unspecified bacterial pneumonia; I24.9 Acute ischemic heart disease, unspecified; J44.0 Chronic obstructive pulmonary disease with (acute) lower respiratory infection; I82.412 Acute embolism and thrombosis of left femoral vein; Z79.01 Long term (current) use of anticoagulants; I73.9 Peripheral vascular disease, unspecified; I10 Essential (primary) hypertension; H54.8 Legal blindness, as defined in USA; Z20.822 Contact with and (suspected) exposure to COVID-19; E78.5 Hyperlipidemia, unspecified
CPT/HCPCS: 36415; 71046; 71275; 80053; 81001; 83605; 83735; 83880; 84484; 85025; 85379; 85610; 85730; 87040; 87081; 87426; 87804; 93005; 93306; 93971; 94640; 96361; 96365; 96376; 97116; 97163; 97530; 99291; G0378; J2470